=== PATIENT | female | born 1970 | race Caucasian/White ===

== ENCOUNTER 2016-12-15 20:25 | Inpatient (IN) | payer OTHER ==
[~2016-12-15] VITALS: Ht 172.7 cm; Wt 120.3 kg
[~2016-12-15 20:25] MED LIST: ALOG1TAB4 PO; ATOR20TA PO; BENA40TA2 PO; CETI10TA22 PO; CYCL10TA2 PO; DICL100G7 TP; GABA-586 PO; IBUP-1060 PO; KETO10TA PO; LEVO50TA5 PO; METF500T9 PO; METO200T3 PO; SUMA50TA3 PO; VENL150C PO; VENTOLIN HFA18 GM INH; [UNRECOGNIZED DRUG - CODE] SQ
[2016-12-15] MEDS ORDERED: IPRATRPIUM/ALBUTEROL 0.5/2.5MG 3 ML NEBU. ONE (20:33)
[2016-12-15] MEDS ORDERED: PREDNISONE 20 MG TABLET PO ONE (20:45)
[2016-12-15] MEDS ORDERED: GUAIFENESIN/CODEINE 100mg/10mg 5 ML LIQUID. PO ONE (20:45)
[2016-12-15] MEDS ORDERED: IPRATRPIUM/ALBUTEROL 0.5/2.5MG 3 ML NEBU. NEB ONE (20:45)
[2016-12-15] MEDS ORDERED: ALBUTEROL SULFATE 2.5 MG/3 ML NEBU. NEB ONE (21:15)
[2016-12-15] MEDS ORDERED: GUAI120L35 PO (22:27)
[2016-12-15] MEDS ORDERED: PRED20TA PO (22:27)
[2016-12-15] MEDS ORDERED: LEVO500T38 PO (22:27)
[2016-12-15] MEDS ORDERED: VENTOLIN HFA18 GM INH (22:27)
--- NOTE | 2016-12-15 22:28 | PHYS DOC ---
Past Medical History Past Medical History: Bronchitis, Diabetes-Type II, GERD, Hypertension, Hypothyroid Additional Past Medical Histor: neuropathy, obesity Past Surgical History: Cholecystectomy, Hysterectomy Additional Past Surgical Histo: open heart 1980, tonsils , Alcohol Use: None Drug Use: None Adult General Chief Complaint Chief Complaint: SHORTNESS OF BREATH HPI HPI 46-year-old nonsmoker presents with intractable cough and congestion. She states she had a bout of bronchitis back in September she was treated and did get better for a period of time but this is started back up again. She feels short of breath when she exerts herself she begins to cough which becomes nearly impossible to control. She denies any fever chills or sweats. She's not had any hemoptysis. [] Review of Systems Review of Systems Constitutional: Denies fever or chills [] Eyes: Denies change in visual acuity, redness, or eye pain [] HENT: Denies nasal congestion or sore throat [] Respiratory: Per history of present illness [] Cardiovascular: No additional information not addressed in HPI [] GI: Denies abdominal pain, nausea, vomiting, bloody stools or diarrhea [] : Denies dysuria or hematuria [] Musculoskeletal: Denies back pain or joint pain [] Integument: Denies rash or skin lesions [] Neurologic: Denies headache, focal weakness or sensory changes [] Endocrine: Denies polyuria or polydipsia [] Current Medications Current Medications Current Medications Medications (Trade) Dose Ordered Sig/Yasmine Start Time Stop Time Status Last Admin Dose Admin Albuterol Sulfate (Ventolin Neb Soln) 5 mg 1X ONCE 12/15/16 21:15 12/15/16 21:16 DC 12/15/16 21:57 5 MG Albuterol/ Ipratropium (Duoneb) 6 ml 1X ONCE 12/15/16 20:45 12/15/16 20:46 DC 12/15/16 20:40 6 ML Guaifenesin/ Codeine Phosphate (Robitussin Ac) 10 ml 1X ONCE 12/15/16 20:45 12/15/16 20:46 DC 12/15/16 20:42 10 ML Prednisone (Prednisone) 60 mg 1X ONCE 12/15/16 20:45 12/15/16 20:46 DC 12/15/16 20:45 60 MG Allergies Allergies Allergies Coded Allergies Type Severity Reaction Last Updated Verified acetaminophen Allergy Intermediate vomiting 12/28/13 Yes aspirin Allergy Intermediate rash 12/28/13 Yes morphine Allergy Intermediate 05/19/16 Yes oxycodone HCl Allergy Intermediate vomiting 12/28/13 Yes latex Allergy Mild swelling 12/28/13 Yes Physical Exam Physical Exam Constitutional: Well developed, well nourished, no acute distress, non-toxic appearance. [] HENT: Normocephalic, atraumatic, bilateral external ears normal, oropharynx moist, no oral exudates, nose normal. [] Eyes: PERRLA, EOMI, conjunctiva normal, no discharge. [] Neck: Normal range of motion, no tenderness, supple, no stridor. [] Cardiovascular:Heart rate regular rhythm, no murmur [] Lungs & Thorax: Scattered wheezes throughout both lungs [] Abdomen: Bowel sounds normal, soft, no tenderness, no masses, no pulsatile masses. [] Skin: Warm, dry, no erythema, no rash. [] Back: No tenderness, no CVA tenderness. [] Extremities: No tenderness, no cyanosis, no clubbing, ROM intact, no edema. [] Neurologic: Alert and oriented X 3, normal motor function, normal sensory function, no focal deficits noted. [] Psychologic: Anxious. [] Current Patient Data Vital Signs Vital Signs Date Time Temp Pulse Resp B/P Pulse Ox O2 Delivery O2 Flow Rate FiO2 12/15/16 21:59 92 Nasal Cannula 3.0 12/15/16 20:32 98.4 150 30 148/84 98.4 EKG EKG [] Radiology/Procedures Radiology/Procedures [] Impressions: Chest x-ray: Small left lower lobe infiltrate Course & Med Decision Making Course & Med Decision Making Pertinent Labs and Imaging studies reviewed. (See chart for details) [ED course: Evaluation reveals a case of bronchitis but she may have a small pneumonia in the left lower lobe. She will be prescribed Levaquin, prednisone, albuterol as well as guaifenesin with codeine.] Dragon Disclaimer Dragon Disclaimer This electronic medical record was generated, in whole or in part, using a voice recognition dictation system. Departure Departure Impression: Primary Impression: Acute bronchitis Disposition: 01 HOME, SELF-CARE Condition: IMPROVED Referrals: MOHAMUD HARDY (PCP) Patient Instructions: Acute Bronchitis, Pneumonia, Adult Additional Instructions: Thank you for allowing us to participate in your care today. Followup with your primary care physician in 3 days if your symptoms do not improve. Return to the emergency department you have any new or concerning findings. This should be evaluated by the primary care physician and any necessary consulting services for continued management within a few days after discharge. Return to emergency room if you have any new or concerning symptoms including but not limited to fever, chills, nausea, vomiting, intractable pain, any new rashes, chest pain, shortness of air, uncontrolled bleeding, difficulty breathing, and/or vision loss. You may have been prescribed medication that can change in your level of thinking and ability to operate machinery. These medications include hydrocodone and Ativan. Also, Benadryl has been known to do this as well. Be sure to check with your pharmacist and ask if the medications you've prescribed can affect your level of consciousness. I recommend not operating heavy machinery or driving while on medication such as these. Scripts Prednisone 20 Mg Tablet2 Tab PO DAILY PRN COUGH #14 TAB Prov:ARNULFO DAVIS DO 12/15/16 Guaifenesin/Codeine Phosphate (Codeine-Guaifen 10-100 mg/5 ml)120 Ml [id number] Ml PO Q8HRS COUGH #120 LIQUID Prov:ARNULFO DAVIS DO 12/15/16 Albuterol Sulfate (Ventolin Hfa Inhaler)18 Gm Hfa.aer.ad2 Puff INH Q4HRS FOR ASTHMA #1 INHALER Ref 2 Prov:ARNULFO DAVIS DO 12/15/16 Levofloxacin (Levaquin)500 Mg Tablet1 Tab PO DAILY urinary tract infection #10 TAB Prov:ARNULFO DAVIS DO 12/15/16 Problem Qualifiers Primary Impression: Acute bronchitis Bronchitis organism: unspecified organism Qualified Code: J20.9 - Acute bronchitis, unspecified ARNULFO DAVIS DO Dec 15, 2016 22:28
[2016-12-15] MEDS ORDERED: IV NORMAL SALINE 1000ML BAG 1,000 ML IV ONE (23:00)
[2016-12-15] MEDS ORDERED: ONDANSETRON PF 4 MG/2 ML VIAL. IV PRN (23:00)
[2016-12-16] VITALS (7 sets, daily range): BP systolic 106–148; BP diastolic 66–84
[2016-12-16] MEDS: IV NORMAL SALINE 1000ML BAG 1,000 ML IV SCH ×4 (00:58→20:56)
--- NOTE | 2016-12-16 07:12 | EKG ---
[facility] [address] [place] [address] Test Date: 2016-12-15 Test Time: 20:35:45 Pat Name: MAYRA MACE Department: Room: 8 Gender: F Lead Application Architect: : 1970 Requested By: CHENG SIMPSON Order Number: [id number] Reading MD: Gayle Armendariz Measurements Intervals [place] Rate: 121 P: 133 MO: 168 QRS: 56 QRSD: 72 T: 31 QT: 310 QTc: 443 Interpretive Statements SINUS TACHYCARDIA OTHERWISE NORMAL ECG RI6.01 No previous ECG available for comparison Electronically Signed On 12-18-2016 0:41:09 BRAKE RIDER by Gayle Armendariz
--- NOTE | 2016-12-16 08:19 | RAD ---
Portable chest, 12/15/2016: History: Cough Comparison is made to a study from 05/03/2014. The heart size and pulmonary vascularity are normal. There is minimal linear atelectasis or scarring in the left base. The upper lung reyes are clear. There is no evidence of pleural fluid. IMPRESSION: Minimal left basilar linear atelectasis or scarring.
[2016-12-16] MEDS: IPRATRPIUM/ALBUTEROL 0.5/2.5MG 3 ML NEBU. NEB SCH ×4 (08:39→19:54)
[2016-12-16] MEDS: methylPREDNISolone SOD SUCC PF 40 MG/ML VIAL. IV SCH ×2 (09:01→20:57)
[2016-12-16] MEDS ORDERED: INSULIN ASPART 300 UNITS/3 ML INSULN.PEN SQ ONE ×2 (09:30→12:00)
[2016-12-16] MEDS ORDERED: SUMATRIPTAN SUCCINATE 4 MG PO PRN (11:00)
[2016-12-16] MEDS ORDERED: IBUPROFEN 400 MG TABLET. PO PRN (11:15)
[2016-12-16] MEDS ORDERED: DEXTROSE 50% 25 GM / 50ML DISP.SYRIN. IV PRN (11:15)
[2016-12-16] MEDS: DICLOFENAC SODIUM 1% TOPICAL GEL 100GM TUBE. TP SCH ×2 (12:00→20:57)
[2016-12-16] MEDS: INSULIN ASPART 300 UNITS/3 ML INSULN.PEN SQ SCH ×2 (12:00→17:22)
[2016-12-16] MEDS ORDERED: NON FORMULARY ITEM (Albuterol Sulfate (Ventolin Hfa Inhaler) 2 PUFF) INH SCH (12:00)
[2016-12-16] MEDS: CETIRIZINE HCL 10 MG TABLET PO SCH (12:01)
[2016-12-16] MEDS: PANTOPRAZOLE 40 MG TABLET. PO SCH (12:01)
[2016-12-16] MEDS: VENLAFAXINE 50 MG TABLET. PO SCH ×2 (12:01→20:57)
[2016-12-16] MEDS: GABAPENTIN 300 MG CAPSULE. PO SCH ×2 (12:01→20:57)
[2016-12-16] MEDS: METFORMIN XR 500 MG TAB.ER.24H PO SCH ×2 (12:02→20:57)
[2016-12-16] MEDS: LEVOTHYROXINE 50 MCG TABLET PO SCH (12:02)
[2016-12-16] MEDS: LISINOPRIL 40 MG TABLET. PO SCH (12:03)
[2016-12-16] MEDS: METOPROLOL SUCC 24HR ER 100 MG TAB.ER.24H. PO SCH (12:03)
[2016-12-16 12:04] LABS: BASO % 0 % (0-3); EOS % 0 % (0-3); LYMPH # 1.5 x10^3/uL (1.0-4.8); LYMPH % 13 % (24-48); MEAN CORPUSCULAR HEMOGLOBIN 27 pg (25-35); MEAN CORPUSCULAR HGB CONC 31 g/dL (31-37); MEAN CORPUSCULAR VOLUME 87 fL (79-100); MONO % 3 % (0-9); NEUT % 83 % (31-73); PLATELET COUNT 372 x10^3/uL (140-400); RED BLOOD COUNT 4.04 x10^6/uL (3.50-5.40); RED CELL DISTRIBUTION WIDTH 17.5 % (11.5-14.5); WHITE BLOOD COUNT 11.1 x10^3/uL (4.0-11.0)
[2016-12-16] MEDS: ENOXAPARIN 40 MG/0.4 ML DISP.SYRIN. SQ SCH (12:04)
[2016-12-16 12:17] LABS: ALBUMIN 3.3 g/dL (3.4-5.0); ALBUMIN/GLOBULIN RATIO 0.7 (1.0-1.7); CALCIUM 9.1 mg/dL (8.5-10.1); CREATININE 0.9 mg/dL (0.6-1.0); POTASSIUM 4.3 mmol/L (3.5-5.1); TOTAL BILIRUBIN 0.2 mg/dL (0.2-1.0); TOTAL PROTEIN 8.1 g/dL (6.4-8.2)
--- NOTE | 2016-12-16 12:22 | HP ---
ADMIT DATE: 12/16/2016 CHIEF COMPLAINT: Shortness of breath. HISTORY OF PRESENT ILLNESS: The patient is a 46-year-old woman with morbid obesity, hypertension, diabetes mellitus, and fibromyalgia who presented to the Emergency Room with recurrent shortness of breath. She relates that this started actually last September with the weather getting cold. She started having more cough and shortness of breath with minor activity, which is quite atypical for her. She denies any fevers or chills. Denies any hemoptysis, any nausea, vomiting or other symptoms. She relates that she had been diagnosed with asthma as a child, but has not had any recent issues. Never smoker. Since September, she actually had required 2 rounds of antibiotics and steroid tapers. Typically within 2 or 3 weeks after completion, symptoms recur. PAST MEDICAL AND SURGICAL HISTORY: Diabetes mellitus, hypertension, hypothyroidism, GERD, diabetic neuropathy, obesity, status post cholecystectomy, status post hysterectomy. FAMILY HISTORY: Positive for DVT, PE in father and half sibling who actually during a of PE. SOCIAL HISTORY: , living with her . No toxic habits. ALLERGIES: TYLENOL, ASPIRIN, LATEX, MORPHINE and OXYCODONE are listed. MEDICATIONS: Home medications reconciled with MAR. REVIEW OF SYSTEMS: Positive as per HPI. Rest of organ system review was essentially negative. PHYSICAL EXAMINATION: VITAL SIGNS: From today show a blood pressure of 134/72, heart rate at 114, respiratory rate at 18. She is afebrile. GENERAL: This is a 46-year-old morbidly obese woman, alert and oriented, in no acute distress. HEENT: Shows no scleral icterus. Oral mucosa is pink and moist. NECK: Supple, without any lymphadenopathy. LUNGS: Revealing expiratory wheezes throughout. No rales. HEART: Tachycardic. ABDOMEN: Obese, positive bowel sounds. EXTREMITIES: Show no edema. SKIN: Warm, soft and dry without any rash. LABORATORY DATA: CBC, Chem-7 pending. Glucose 283 and 293. RADIOGRAPHIC FINDINGS: Chest x-ray with minimal left basilar linear atelectasis or scarring. ASSESSMENT AND PLAN: The patient is a 46-year-old woman with recurrent bouts of shortness of breath/bronchitis. I suspect there may be underlying asthma in her. I will obtain pulmonary consult. In the meantime, she has been started on steroids, which clearly is helping her. We will continue regimen for the time being. Suspect she may need an inhaled steroid for maintenance down the road. Without clear bacterial infection symptoms, we will hold off on antibiotics for now. Continue O2 as needed. For diabetes, she is on multiple meds which we unfortunately do not have available here. With steroids on board as well, blood sugars are poorly controlled. We will institute insulin for the time being. Continue metformin. For high blood pressure, the patient is on a regimen at home that seems to be controlling blood pressure well. Will continue. Will also continue other home medications including for depression and fibromyalgia. Prophylaxis will be instituted with PPI considering her steroid regimen as well as Lovenox. LILI HONG MD DR: ALLY/nts JOB#: [id number] / [id number] MOHAMUD De Dios MTDD
[2016-12-16 12:39] LABS: OBC FLU VALID
[2016-12-16] MEDS ORDERED: ALBUTEROL SULFATE 2.5 MG/3 ML NEBU. NEB PRN (14:00)
[2016-12-16] MEDS: GUAIFENESIN/CODEINE 100mg/10mg 5 ML LIQUID. PO SCH ×2 (14:33→20:58)
[2016-12-16] MEDS: BUDESONIDE 0.5 MG/2 ML NEBU NEB SCH (19:53)
[2016-12-16] MEDS ORDERED: ATORVASTATIN CALCIUM 20 MG TABLET PO SCH (21:00)
[2016-12-17 03:00] VITALS: BP 147/82
[2016-12-17] MEDS: GUAIFENESIN/CODEINE 100mg/10mg 5 ML LIQUID. PO SCH ×2 (05:07→12:53)
[2016-12-17] MEDS: LEVOTHYROXINE 50 MCG TABLET PO SCH (05:07)
[2016-12-17 07:00] VITALS: BP 152/89
--- NOTE | 2016-12-17 07:11 | CONS ---
DATE OF CONSULTATION: ATTENDING PHYSICIAN: Michael Ortega D.O. REASON FOR CONSULTATION: Cough, dyspnea and wheezing. HISTORY OF PRESENT ILLNESS: The patient is a 46-year-old obese patient who has no history of tobacco use. She did have a history of asthma as a child, which she outgrew it. She presented to the hospital with complaint of persistent cough and chest congestion. She said she had a bout of bronchitis back in September, which did took a while to get better and then she started to have same symptoms with persistent coughing. She was having wheezing as well. The patient was seen in the Emergency Room. A chest x-ray was obtained. This shows minimal atelectasis versus scarring in the left lower lobe. She is feeling better. She wants to go home. Currently, she was placed on nebulizer treatments along with IV Solu-Medrol. She also has been tested for sleep apnea. She was told that she probably has sleep apnea and she is scheduled for CPAP titration study as an outpatient. PAST MEDICAL HISTORY: History of bronchitis, history of asthma as a child, type 2 diabetes, GERD, hypertension, hypothyroidism, neuropathy, obesity and suspected OLY. PAST SURGICAL HISTORY: Cholecystectomy, hysterectomy, open heart in 1979 and tonsillectomy. ALLERGIES: Multiple, which were all reviewed as listed in the MRAD. MEDICATIONS: Reviewed as listed in the MRAD. SOCIAL HISTORY: Nonsmoker. FAMILY HISTORY: Noncontributory to lungs. PHYSICAL EXAMINATION: VITAL SIGNS: Stable, afebrile, pulse ox 94% on 3 liters. NECK: Supple. LUNGS: With faint expiratory wheezes. CARDIOVASCULAR: Regular rate and rhythm. ABDOMEN: Soft, obese. EXTREMITIES: With no pitting edema. LABORATORY DATA: Reviewed. Only chemistries were available with a glucose of 293. IMPRESSION: 1. Persistent cough with bronchospasm in the patient who has no significant history of tobacco use and minimal atelectasis seen in the left lower lobe. I suspect she most likely has viral bronchitis triggering adult-onset asthma. 2. No significant history of tobacco use. 3. Sleep apnea diagnosed recently and is scheduled for an outpatient CPAP titration study. 4. Underlying morbid obesity. 5. Hypoxic respiratory failure secondary to above, requiring 3 liters of oxygen. RECOMMENDATIONS: 1. Continue with present albuterol nebulizer. 2. She would benefit from adding steroid inhaler. I have given a prescription of Flovent as an outpatient and in house she will use Pulmicort. 3. Continued IV steroids. 4. Rule out influenza. Nasal swab will be done. 5. Add empiric antibiotic. 6. Could be discharged home in the next 24 hours. HUBER LEWIS MD DR: ZOLTAN/ne JOB#: [id number] / [id number] JONO
[2016-12-17] MEDS: IPRATRPIUM/ALBUTEROL 0.5/2.5MG 3 ML NEBU. NEB SCH (07:35)
[2016-12-17] MEDS: BUDESONIDE 0.5 MG/2 ML NEBU NEB SCH (07:35)
[2016-12-17] MEDS: VENLAFAXINE 50 MG TABLET. PO SCH ×2 (08:26→12:52)
[2016-12-17] MEDS: GABAPENTIN 300 MG CAPSULE. PO SCH (08:26)
[2016-12-17] MEDS: LISINOPRIL 40 MG TABLET. PO SCH (08:27)
[2016-12-17] MEDS: PANTOPRAZOLE 40 MG TABLET. PO SCH (08:28)
[2016-12-17] MEDS: methylPREDNISolone SOD SUCC PF 40 MG/ML VIAL. IV SCH (08:28)
[2016-12-17] MEDS: METFORMIN XR 500 MG TAB.ER.24H PO SCH (08:28)
[2016-12-17] MEDS: METOPROLOL SUCC 24HR ER 100 MG TAB.ER.24H. PO SCH (08:29)
[2016-12-17] MEDS: CETIRIZINE HCL 10 MG TABLET PO SCH (08:30)
[2016-12-17] MEDS: INSULIN ASPART 300 UNITS/3 ML INSULN.PEN SQ SCH ×2 (08:37→13:00)
--- NOTE | 2016-12-17 10:35 | PDOC ---
PULMONARY PROGRESS NOTES Subjective less cough wants to go home Vitals Vital Signs Date Time Temp Pulse Resp B/P Pulse Ox O2 Delivery O2 Flow Rate FiO2 12/17/16 08:29 88 152/89 12/17/16 07:36 95 Room Air 12/17/16 07:00 97.7 22 97.7 12/16/16 19:57 3.0 General: Alert, No acute distress Lungs: Clear Cardiovascular: S1 Abdomen: Soft Neuro Exam: Alert Extremities: No Edema Skin: Warm Labs Laboratory Tests Test 12/15/16 23:48 12/16/16 08:05 12/16/16 11:15 12/16/16 11:43 Glucose (Fingerstick) 283mg/dL (70-99) 293mg/dL (70-99) 364mg/dL (70-99) White Blood Count 11.1x10^3/uL (4.0-11.0) Red Blood Count 4.04x10^6/uL (3.50-5.40) Hemoglobin 11.0g/dL (12.0-15.5) Hematocrit 35.0% (36.0-47.0) Mean Corpuscular Volume 87fL (79-100) Mean Corpuscular Hemoglobin 27pg (25-35) Mean Corpuscular Hemoglobin Concent 31g/dL (31-37) Red Cell Distribution Width 17.5% (11.5-14.5) Platelet Count 372x10^3/uL (140-400) Neutrophils (%) (Auto) 83% (31-73) Lymphocytes (%) (Auto) 13% (24-48) Monocytes (%) (Auto) 3% (0-9) Eosinophils (%) (Auto) 0% (0-3) Basophils (%) (Auto) 0% (0-3) Neutrophils # (Auto) 9.2x10^3uL (1.8-7.7) Lymphocytes # (Auto) 1.5x10^3/uL (1.0-4.8) Monocytes # (Auto) 0.3x10^3/uL (0.0-1.1) Eosinophils # (Auto) 0.0x10^3/uL (0.0-0.7) Basophils # (Auto) 0.0x10^3/uL (0.0-0.2) Sodium Level 139mmol/L (136-145) Potassium Level 4.3mmol/L (3.5-5.1) Chloride Level 102mmol/L (98-107) Carbon Dioxide Level 28mmol/L (21-32) Anion Gap 9 (6-14) Blood Urea Nitrogen 8mg/dL (7-20) Creatinine 0.9mg/dL (0.6-1.0) Estimated GFR (Cockcroft-Gault) 68.0 BUN/Creatinine Ratio 9 (6-20) Glucose Level 373mg/dL (70-99) Calcium Level 9.1mg/dL (8.5-10.1) Total Bilirubin 0.2mg/dL (0.2-1.0) Aspartate Amino Transf (AST/SGOT) 23U/L (15-37) Alanine Aminotransferase (ALT/SGPT) 29U/L (14-59) Alkaline Phosphatase 87U/L (46-116) Total Protein 8.1g/dL (6.4-8.2) Albumin 3.3g/dL (3.4-5.0) Albumin/Globulin Ratio 0.7 (1.0-1.7) Test 12/16/16 12:00 12/16/16 16:57 12/16/16 20:45 12/17/16 07:40 Influenza Type A Antigen Negative (NEGATIVE) Influenza Type B Antigen Negative (NEGATIVE) Glucose (Fingerstick) 285mg/dL (70-99) 236mg/dL (70-99) 300mg/dL (70-99) Laboratory Tests Test 12/16/16 11:15 12/16/16 11:43 12/16/16 12:00 12/16/16 16:57 Glucose (Fingerstick) 364mg/dL (70-99) 285mg/dL (70-99) White Blood Count 11.1x10^3/uL (4.0-11.0) Red Blood Count 4.04x10^6/uL (3.50-5.40) Hemoglobin 11.0g/dL (12.0-15.5) Hematocrit 35.0% (36.0-47.0) Mean Corpuscular Volume 87fL (79-100) Mean Corpuscular Hemoglobin 27pg (25-35) Mean Corpuscular Hemoglobin Concent 31g/dL (31-37) Red Cell Distribution Width 17.5% (11.5-14.5) Platelet Count 372x10^3/uL (140-400) Neutrophils (%) (Auto) 83% (31-73) Lymphocytes (%) (Auto) 13% (24-48) Monocytes (%) (Auto) 3% (0-9) Eosinophils (%) (Auto) 0% (0-3) Basophils (%) (Auto) 0% (0-3) Neutrophils # (Auto) 9.2x10^3uL (1.8-7.7) Lymphocytes # (Auto) 1.5x10^3/uL (1.0-4.8) Monocytes # (Auto) 0.3x10^3/uL (0.0-1.1) Eosinophils # (Auto) 0.0x10^3/uL (0.0-0.7) Basophils # (Auto) 0.0x10^3/uL (0.0-0.2) Sodium Level 139mmol/L (136-145) Potassium Level 4.3mmol/L (3.5-5.1) Chloride Level 102mmol/L (98-107) Carbon Dioxide Level 28mmol/L (21-32) Anion Gap 9 (6-14) Blood Urea Nitrogen 8mg/dL (7-20) Creatinine 0.9mg/dL (0.6-1.0) Estimated GFR (Cockcroft-Gault) 68.0 BUN/Creatinine Ratio 9 (6-20) Glucose Level 373mg/dL (70-99) Calcium Level 9.1mg/dL (8.5-10.1) Total Bilirubin 0.2mg/dL (0.2-1.0) Aspartate Amino Transf (AST/SGOT) 23U/L (15-37) Alanine Aminotransferase (ALT/SGPT) 29U/L (14-59) Alkaline Phosphatase 87U/L (46-116) Total Protein 8.1g/dL (6.4-8.2) Albumin 3.3g/dL (3.4-5.0) Albumin/Globulin Ratio 0.7 (1.0-1.7) Influenza Type A Antigen Negative (NEGATIVE) Influenza Type B Antigen Negative (NEGATIVE) Test 12/16/16 20:45 12/17/16 07:40 Glucose (Fingerstick) 236mg/dL (70-99) 300mg/dL (70-99) Medications Active Scripts Medications Dose Route/Sig Days Date Category Prednisone 20 Mg Tablet 2 Tab PO DAILY PRN 12/15/16 Rx Codeine-Guaifen 10-100 mg/5 ml (Guaifenesin/Codeine Phosphate) 120 Ml Liquid 10 Ml PO Q8HRS 12/15/16 Rx Ventolin Hfa Inhaler (Albuterol Sulfate) 18 Gm Hfa.aer.ad 2 Puff INH Q4HRS 12/15/16 Rx Levaquin (Levofloxacin) 500 Mg Tablet 1 Tab PO DAILY 12/15/16 Rx Gabapentin 300 Mg Capsule 300 Mg PO BID 03/20/16 Reported Ibuprofen 800 Mg Tablet 800 Mg PO TID 03/20/16 Reported Metformin Hcl Er (Metformin Hcl) 500 Mg Tab.er.24h 2 Tab PO DAILY 03/20/16 Reported Cyclobenzaprine Hcl 10 Mg Tablet 1 Tab PO QHS 03/20/16 Reported Lipitor (Atorvastatin Calcium) 20 Mg Tablet 20 Mg PO HS 03/20/16 Reported Levothyroxine Sodium 50 Mcg Tablet 1 Tab PO DAILY 03/20/16 Reported Benazepril Hcl 40 Mg Tablet 1 Tab PO DAILY 03/20/16 Reported Oseni 25-15 Mg Tablet (Alogliptin Walter/Pioglitzone) 1 Each Tablet 1 Each PO 03/20/16 Reported Sumavel Dosepro (Sumatriptan Succinate) 4 Mg/0.5 Ml Ndl.fr.inj 4 Mg SQ 03/20/16 Reported Voltaren (Diclofenac Sodium) 100 Gm Gel..gram. 1 Gm TP TID 03/20/16 Reported Metoprolol Succinate ( Xl ) (Metoprolol Succinate) 200 Mg Tab.er.24h 1 Tab PO DAILY 03/20/16 Reported Ketorolac Tromethamine 10 Mg Tablet 10 Mg PO DAILY 03/20/16 Reported Ventolin Hfa Inhaler (Albuterol Sulfate) 18 Gm Hfa.aer.ad 2 Puff INH QID 03/20/16 Reported Zyrtec (Cetirizine Hcl) 10 Mg Tablet 1 Tab PO DAILY 03/20/16 Reported Imitrex (Sumatriptan Succinate) 50 Mg Tablet 4 Mg PO ONCE PRN 03/20/16 Reported Effexor Xr (Venlafaxine Hcl) 150 Mg Cap.er.24h 1 Cap PO DAILY 03/20/16 Reported Impression . 1. Persistent cough with bronchospasm in the patient who has no significant history of tobacco use and minimal atelectasis seen in the left lower lobe. I suspect she most likely has viral bronchitis triggering adult-onset asthma. 2. No significant history of tobacco use. 3. Sleep apnea diagnosed recently and is scheduled for an outpatient CPAP titration study. 4. Underlying morbid obesity. 5. Hypoxic respiratory failure secondary to above, requiring 3 liters of oxygen. Plan . 1. Continue with present albuterol nebulizer. 2. She would benefit from adding steroid inhaler. I have given a prescription of Flovent as an outpatient and in house she will use Pulmicort. 3. Continued IV steroids. start taper 4. Neg influenza. 5. empiric antibiotic. 6. Could be discharged home today HUBER LEWIS MD Dec 17, 2016 10:35
[2016-12-17 11:05] VITALS: BP 137/89
--- NOTE | 2016-12-17 11:15 | PDOC ---
PROGRESS NOTES Chief Complaint Chief Complaint SOB ASSESSMENT AND PLAN: 1. Bronchitis: clinically much improved. appreciate Dr Rudd's input. steroid taper . added inhaled steroids 2. DM: poorly controlled, not unexpected with steroids. taper off, cover with iss 3. HTN: : well controlled on home regimen 4. Fibromyalgia: cont home meds 5. Depression: stable mood. cont home med 6. Prophylaxis: PPI, lovenox 7. Dispo: home Vitals Vitals Vital Signs Date Time Temp Pulse Resp B/P Pulse Ox O2 Delivery O2 Flow Rate FiO2 12/17/16 11:05 97.7 89 20 137/89 94 Room Air 97.7 12/16/16 19:57 3.0 Physical Exam Lungs: Clear Labs LABS Laboratory Tests Test 12/16/16 11:15 12/16/16 11:43 12/16/16 12:00 12/16/16 16:57 Glucose (Fingerstick) 364mg/dL (70-99) 285mg/dL (70-99) White Blood Count 11.1x10^3/uL (4.0-11.0) Red Blood Count 4.04x10^6/uL (3.50-5.40) Hemoglobin 11.0g/dL (12.0-15.5) Hematocrit 35.0% (36.0-47.0) Mean Corpuscular Volume 87fL (79-100) Mean Corpuscular Hemoglobin 27pg (25-35) Mean Corpuscular Hemoglobin Concent 31g/dL (31-37) Red Cell Distribution Width 17.5% (11.5-14.5) Platelet Count 372x10^3/uL (140-400) Neutrophils (%) (Auto) 83% (31-73) Lymphocytes (%) (Auto) 13% (24-48) Monocytes (%) (Auto) 3% (0-9) Eosinophils (%) (Auto) 0% (0-3) Basophils (%) (Auto) 0% (0-3) Neutrophils # (Auto) 9.2x10^3uL (1.8-7.7) Lymphocytes # (Auto) 1.5x10^3/uL (1.0-4.8) Monocytes # (Auto) 0.3x10^3/uL (0.0-1.1) Eosinophils # (Auto) 0.0x10^3/uL (0.0-0.7) Basophils # (Auto) 0.0x10^3/uL (0.0-0.2) Sodium Level 139mmol/L (136-145) Potassium Level 4.3mmol/L (3.5-5.1) Chloride Level 102mmol/L (98-107) Carbon Dioxide Level 28mmol/L (21-32) Anion Gap 9 (6-14) Blood Urea Nitrogen 8mg/dL (7-20) Creatinine 0.9mg/dL (0.6-1.0) Estimated GFR (Cockcroft-Gault) 68.0 BUN/Creatinine Ratio 9 (6-20) Glucose Level 373mg/dL (70-99) Calcium Level 9.1mg/dL (8.5-10.1) Total Bilirubin 0.2mg/dL (0.2-1.0) Aspartate Amino Transf (AST/SGOT) 23U/L (15-37) Alanine Aminotransferase (ALT/SGPT) 29U/L (14-59) Alkaline Phosphatase 87U/L (46-116) Total Protein 8.1g/dL (6.4-8.2) Albumin 3.3g/dL (3.4-5.0) Albumin/Globulin Ratio 0.7 (1.0-1.7) Influenza Type A Antigen Negative (NEGATIVE) Influenza Type B Antigen Negative (NEGATIVE) Test 12/16/16 20:45 12/17/16 07:40 12/17/16 10:38 Glucose (Fingerstick) 236mg/dL (70-99) 300mg/dL (70-99) 276mg/dL (70-99) Review of Systems Review of Systems feels much better, eager to go home Comment Review of Relevant I have reviewed the following items marques (where applicable) has been applied. Labs Laboratory Tests Test 12/15/16 23:48 12/16/16 08:05 12/16/16 11:15 12/16/16 11:43 Glucose (Fingerstick) 283mg/dL (70-99) 293mg/dL (70-99) 364mg/dL (70-99) White Blood Count 11.1x10^3/uL (4.0-11.0) Red Blood Count 4.04x10^6/uL (3.50-5.40) Hemoglobin 11.0g/dL (12.0-15.5) Hematocrit 35.0% (36.0-47.0) Mean Corpuscular Volume 87fL (79-100) Mean Corpuscular Hemoglobin 27pg (25-35) Mean Corpuscular Hemoglobin Concent 31g/dL (31-37) Red Cell Distribution Width 17.5% (11.5-14.5) Platelet Count 372x10^3/uL (140-400) Neutrophils (%) (Auto) 83% (31-73) Lymphocytes (%) (Auto) 13% (24-48) Monocytes (%) (Auto) 3% (0-9) Eosinophils (%) (Auto) 0% (0-3) Basophils (%) (Auto) 0% (0-3) Neutrophils # (Auto) 9.2x10^3uL (1.8-7.7) Lymphocytes # (Auto) 1.5x10^3/uL (1.0-4.8) Monocytes # (Auto) 0.3x10^3/uL (0.0-1.1) Eosinophils # (Auto) 0.0x10^3/uL (0.0-0.7) Basophils # (Auto) 0.0x10^3/uL (0.0-0.2) Sodium Level 139mmol/L (136-145) Potassium Level 4.3mmol/L (3.5-5.1) Chloride Level 102mmol/L (98-107) Carbon Dioxide Level 28mmol/L (21-32) Anion Gap 9 (6-14) Blood Urea Nitrogen 8mg/dL (7-20) Creatinine 0.9mg/dL (0.6-1.0) Estimated GFR (Cockcroft-Gault) 68.0 BUN/Creatinine Ratio 9 (6-20) Glucose Level 373mg/dL (70-99) Calcium Level 9.1mg/dL (8.5-10.1) Total Bilirubin 0.2mg/dL (0.2-1.0) Aspartate Amino Transf (AST/SGOT) 23U/L (15-37) Alanine Aminotransferase (ALT/SGPT) 29U/L (14-59) Alkaline Phosphatase 87U/L (46-116) Total Protein 8.1g/dL (6.4-8.2) Albumin 3.3g/dL (3.4-5.0) Albumin/Globulin Ratio 0.7 (1.0-1.7) Test 12/16/16 12:00 12/16/16 16:57 12/16/16 20:45 12/17/16 07:40 Influenza Type A Antigen Negative (NEGATIVE) Influenza Type B Antigen Negative (NEGATIVE) Glucose (Fingerstick) 285mg/dL (70-99) 236mg/dL (70-99) 300mg/dL (70-99) Test 12/17/16 10:38 Glucose (Fingerstick) 276mg/dL (70-99) Laboratory Tests Test 12/16/16 11:15 12/16/16 11:43 12/16/16 12:00 12/16/16 16:57 Glucose (Fingerstick) 364mg/dL (70-99) 285mg/dL (70-99) White Blood Count 11.1x10^3/uL (4.0-11.0) Red Blood Count 4.04x10^6/uL (3.50-5.40) Hemoglobin 11.0g/dL (12.0-15.5) Hematocrit 35.0% (36.0-47.0) Mean Corpuscular Volume 87fL (79-100) Mean Corpuscular Hemoglobin 27pg (25-35) Mean Corpuscular Hemoglobin Concent 31g/dL (31-37) Red Cell Distribution Width 17.5% (11.5-14.5) Platelet Count 372x10^3/uL (140-400) Neutrophils (%) (Auto) 83% (31-73) Lymphocytes (%) (Auto) 13% (24-48) Monocytes (%) (Auto) 3% (0-9) Eosinophils (%) (Auto) 0% (0-3) Basophils (%) (Auto) 0% (0-3) Neutrophils # (Auto) 9.2x10^3uL (1.8-7.7) Lymphocytes # (Auto) 1.5x10^3/uL (1.0-4.8) Monocytes # (Auto) 0.3x10^3/uL (0.0-1.1) Eosinophils # (Auto) 0.0x10^3/uL (0.0-0.7) Basophils # (Auto) 0.0x10^3/uL (0.0-0.2) Sodium Level 139mmol/L (136-145) Potassium Level 4.3mmol/L (3.5-5.1) Chloride Level 102mmol/L (98-107) Carbon Dioxide Level 28mmol/L (21-32) Anion Gap 9 (6-14) Blood Urea Nitrogen 8mg/dL (7-20) Creatinine 0.9mg/dL (0.6-1.0) Estimated GFR (Cockcroft-Gault) 68.0 BUN/Creatinine Ratio 9 (6-20) Glucose Level 373mg/dL (70-99) Calcium Level 9.1mg/dL (8.5-10.1) Total Bilirubin 0.2mg/dL (0.2-1.0) Aspartate Amino Transf (AST/SGOT) 23U/L (15-37) Alanine Aminotransferase (ALT/SGPT) 29U/L (14-59) Alkaline Phosphatase 87U/L (46-116) Total Protein 8.1g/dL (6.4-8.2) Albumin 3.3g/dL (3.4-5.0) Albumin/Globulin Ratio 0.7 (1.0-1.7) Influenza Type A Antigen Negative (NEGATIVE) Influenza Type B Antigen Negative (NEGATIVE) Test 12/16/16 20:45 12/17/16 07:40 12/17/16 10:38 Glucose (Fingerstick) 236mg/dL (70-99) 300mg/dL (70-99) 276mg/dL (70-99) Medications Current Medications Albuterol/ Ipratropium (Duoneb) 3 ml STK-MED ONCE .ROUTE ; Start 12/15/16 at 20: 33; Stop 12/15/16 at 20:34; Status DC Albuterol/ Ipratropium (Duoneb) 6 ml 1X ONCE NEB Last administered on 20:40; Start 12/15/16 at 20:45; Stop 12/15/16 at 20:46; Status DC Prednisone (Prednisone) 60 mg 1X ONCE PO Last administered on 12/15/16 20:45 ; Start 12/15/16 at 20:45; Stop 12/15/16 at 20:46; Status DC Guaifenesin/ Codeine Phosphate (Robitussin Ac) 10 ml 1X ONCE PO Last administered on 12/15/16 20:42; Start 12/15/16 at 20:45; Stop 12/15/16 at 20:46 ; Status DC Albuterol Sulfate (Ventolin Neb Soln) 5 mg 1X ONCE NEB Last administered on 21:57; Start 12/15/16 at 21:15; Stop 12/15/16 at 21:16; Status DC Ondansetron HCl 4 mg 4 mg PRN Q8HRS PRN IV NAUSEA/VOMITING; Start 12/15/16 at 23:00; Stop 12/16/16 at 22:59; Status DC Sodium Chloride (Iv Sodium Chloride 0.9% 1000ml Bag) 1,000 ml @ 150 mls/hr Q6H40M IV Last administered on 12/16/16 20:56; Start 12/15/16 at 23:00; Stop 12/16/16 at 22:59; Status DC Albuterol/ Ipratropium (Duoneb) 3 ml RTQID NEB Last administered on 12/17/16 07:35; Start 12/16/16 at 08:00; Stop 12/17/16 at 07:59; Status DC Methylprednisolone Sodium Succinate 40 mg 40 mg BID IV Last administered on 08:28; Start 12/16/16 at 09:00 Levofloxacin/ Dextrose 100 ml @ 100 mls/hr 1X ONCE IV Last administered on 00:12; Start 12/15/16 at 23:00; Stop 12/15/16 at 23:59; Status DC Sodium Chloride (Iv Sodium Chloride 0.9% 1000ml Bag) 1,000 ml @ 1,000 mls/hr 1X ONCE IV Last administered on 12/15/16 23:48; Start 12/15/16 at 23:00; Stop 12/15/16 at 23:59; Status DC Insulin Aspart (Novolog) 10 units 1X ONCE SQ Last administered on 12/16/16 09 :29; Start 12/16/16 at 09:30; Stop 12/16/16 at 09:31; Status DC Atorvastatin Calcium (Lipitor) 20 mg HS PO Last administered on 12/16/16 20:57 ; Start 12/16/16 at 21:00 Cetirizine HCl (Zyrtec) 10 mg DAILY PO Last administered on 12/16/16 12:01; Start 12/16/16 at 12:00 Diclofenac Sodium (Voltaren) 1 inna TID TP ; Start 12/16/16 at 12:00 Gabapentin (Neurontin) 300 mg BID PO Last administered on 12/17/16 08:26; Start 12/16/16 at 12:00 Guaifenesin/ Codeine Phosphate (Robitussin Ac) 10 ml Q8HRS PO Last administered on 12/17/16 05:07; Start 12/16/16 at 14:00 Ibuprofen (Motrin) 400 mg PRN Q6HRS PRN PO INFLAMMATION; Start 12/16/16 at 11: 15 Levothyroxine Sodium (Synthroid) 50 mcg DAILY06 PO Last administered on 05:07; Start 12/16/16 at 12:00 Metformin HCl (Glucophage Xr) 1,000 mg BID PO Last administered on 12/17/16 08 :28; Start 12/16/16 at 12:00 Non-Formulary Medication 2 puff Q4HRS INH FOR ASTHMA; Start 12/16/16 at 12:00; Status UNV Lisinopril (Prinivil) 40 mg DAILY PO Last administered on 12/17/16 08:27; Start 12/16/16 at 12:00 Metoprolol Succinate (Toprol Xl) 200 mg DAILY PO Last administered on 08:29; Start 12/16/16 at 12:00 Non-Formulary Medication 4 mg ONCE PRN PO MIGRAINE HEADACHE; Start 12/16/16 at 11:00; Status UNV Venlafaxine HCl (Effexor) 50 mg TID PO Last administered on 12/17/16 08:26; Start 12/16/16 at 12:00 Insulin Aspart (Novolog) 0-9 UNITS TIDWMEALS SQ Last administered on 12/17/16 08:37; Start 12/16/16 at 12:00 Dextrose 12.5 gm PRN Q15MIN PRN IV SEE COMMENTS; Start 12/16/16 at 11:15 Enoxaparin Sodium (Lovenox 40mg Syringe) 40 mg Q24H SQ Last administered on 12:04; Start 12/16/16 at 12:00 Pantoprazole Sodium (Protonix) 40 mg DAILYAC PO Last administered on 12/17/16 08:28; Start 12/16/16 at 12:00 Albuterol Sulfate (Ventolin Neb Soln) 2.5 mg PRN Q4HRS PRN NEB SHORTNESS OF BREATH; Start 12/16/16 at 14:00 Insulin Aspart 15 units 15 units 1X ONCE SQ Last administered on 12/16/16 12: 09; Start 12/16/16 at 12:00; Stop 12/16/16 at 12:01; Status DC Levofloxacin/ Dextrose (LEVAQUIN 500mg PREMIX) 100 ml @ 100 mls/hr Q24H IV Last administered on 12/16/16 12:19; Start 12/16/16 at 12:00 Budesonide (Pulmicort) 0.5 mg RTBID NEB Last administered on 12/17/16 07:35; Start 12/16/16 at 20:00 Active Scripts Active Prednisone 20 Mg Tablet 2 Tab PO DAILY PRN Codeine-Guaifen 10-100 mg/5 ml (Guaifenesin/Codeine Phosphate) 120 Ml Liquid 10 Ml PO Q8HRS Ventolin Hfa Inhaler (Albuterol Sulfate) 18 Gm Hfa.aer.ad 2 Puff INH Q4HRS Levaquin (Levofloxacin) 500 Mg Tablet 1 Tab PO DAILY Reported Gabapentin 300 Mg Capsule 300 Mg PO BID Ibuprofen 800 Mg Tablet 800 Mg PO TID Metformin Hcl Er (Metformin Hcl) 500 Mg Tab.er.24h 2 Tab PO DAILY Cyclobenzaprine Hcl 10 Mg Tablet 1 Tab PO QHS Lipitor (Atorvastatin Calcium) 20 Mg Tablet 20 Mg PO HS Levothyroxine Sodium 50 Mcg Tablet 1 Tab PO DAILY Benazepril Hcl 40 Mg Tablet 1 Tab PO DAILY Oseni 25-15 Mg Tablet (Alogliptin Walter/Pioglitzone) 1 Each Tablet 1 Each PO Sumavel Dosepro (Sumatriptan Succinate) 4 Mg/0.5 Ml Ndl.fr.inj 4 Mg SQ Voltaren (Diclofenac Sodium) 100 Gm Gel..gram. 1 Gm TP TID Metoprolol Succinate ( Xl ) (Metoprolol Succinate) 200 Mg Tab.er.24h 1 Tab PO DAILY Ketorolac Tromethamine 10 Mg Tablet 10 Mg PO DAILY Ventolin Hfa Inhaler (Albuterol Sulfate) 18 Gm Hfa.aer.ad 2 Puff INH QID Zyrtec (Cetirizine Hcl) 10 Mg Tablet 1 Tab PO DAILY Imitrex (Sumatriptan Succinate) 50 Mg Tablet 4 Mg PO ONCE PRN Effexor Xr (Venlafaxine Hcl) 150 Mg Cap.er.24h 1 Cap PO DAILY Vitals/I & O Vital Sign - Last 24 Hours 12/16/16 12/16/16 12/16/16 12/16/16 12:03 12:03 15:00 15:04 Temp 98.4 98.4 Pulse 114 114 91 Resp 17 B/P 134/72 134/72 130/66 Pulse Ox 97 O2 Delivery Room Air Room Air 12/16/16 12/16/16 12/16/16 12/16/16 19:00 19:57 19:57 20:00 Temp 97.9 97.9 Pulse 92 Resp 18 B/P 129/84 Pulse Ox 94 O2 Delivery Room Air Nasal Cannula Nasal Cannula Room Air O2 Flow Rate 3.0 3.0 12/16/16 12/17/16 12/17/16 12/17/16 23:00 03:00 07:00 07:36 Temp 98.4 97.9 97.7 98.4 97.9 97.7 Pulse 92 94 88 Resp 18 18 22 B/P 148/78 147/82 152/89 Pulse Ox 95 94 95 95 O2 Delivery Room Air Room Air Room Air Room Air 12/17/16 12/17/16 12/17/16 08:27 08:29 11:05 Temp 97.7 97.7 Pulse 89 88 89 Resp 20 B/P 152/89 152/89 137/89 Pulse Ox 94 O2 Delivery Room Air Intake and Output 12/16/16 12/16/16 12/17/16 15:00 23:00 07:00 Intake Total 460 ml 120 ml Balance 460 ml 120 ml LILI HONG MD Dec 17, 2016 11:15
[2016-12-17] MEDS: ENOXAPARIN 40 MG/0.4 ML DISP.SYRIN. SQ SCH (12:00)
--- NOTE | 2016-12-17 12:38 | DISCH ---
DISCHARGE INSTRUCTIONS Condition on Discharge Condition on Discharge: Stable Activity After Discharge Activity Instructions for Disc: No restrictions Diet after Discharge Diet after Discharge: Cardiac, Diabetic No Calorie Level Contacting the after DC Call your doctor for: If your condition worsens Follow-Up Follow up with: PCP in 1-2 weeks Follow Up With: Dr Rico Rudd in 3 months LILI HONG MD Dec 17, 2016 12:38
[2016-12-17] MEDS: DICLOFENAC SODIUM 1% TOPICAL GEL 100GM TUBE. TP SCH ×2 (12:52→13:02)
[2016-12-17] MEDS ORDERED: BUDE180A IH (13:02)
[2016-12-17] MEDS ORDERED: PRED-220 PO (16:25)
--- NOTE | 2016-12-19 01:20 | DS ---
DATE OF DISCHARGE: 12/17/2016 CHIEF COMPLAINT: Shortness of breath. HISTORY AND HOSPITAL COURSE: The patient is a 46-year-old morbidly obese woman with diabetes, hypertension, fibromyalgia, who presented with severe shortness of breath. She actually had been treated for bronchitis twice in the past 2 months by her PCP. Now with recurrent symptoms, she came to the Emergency Room. She was admitted, seen by pulmonology and started on steroids and nebulizers as well as supplemental O2. She actually improved significantly. She was deemed stable for discharge on the . Inhaled steroids were added to her home regimen. PHYSICAL EXAMINATION: Please refer to note from same day. DISCHARGE DATE: 12/17/2016 DISCHARGE CONDITION: Improved. DISCHARGE DISPOSITION: To home. DISCHARGE DIAGNOSES: 1. Bronchitis. 2. Adult onset asthma. DISCHARGE MEDICATIONS: Please refer to JAN. DISCHARGE INSTRUCTIONS: The patient will follow up with PCP ADRIENNE. LILI HONG MD DR: ALLY/nts JOB#: [id number] / [id number] MOHAMUD De Dios
== END 2016-12-17 17:00 | disposition home or self-care (01) | DRG 189 ==
LOC: ER 20:25 → 5 NORTH 22:50
PROVIDERS: ADMIT Internal Medicine; ATTEND Internal Medicine
DX: J96.01 Acute respiratory failure with hypoxia (principal); J20.9 Acute bronchitis, unspecified; J45.909 Unspecified asthma, uncomplicated; E03.9 Hypothyroidism, unspecified; F32.9 Major depressive disorder, single episode, unspecified; I10 Essential (primary) hypertension; K21.9 Gastro-esophageal reflux disease without esophagitis; M79.7 Fibromyalgia; E11.40 Type 2 diabetes mellitus with diabetic neuropathy, unspecified; E11.65 Type 2 diabetes mellitus with hyperglycemia; E66.01 Morbid (severe) obesity due to excess calories; Z88.1 Allergy status to other antibiotic agents; Z88.6 Allergy status to analgesic agent; Z91.040 Latex allergy status; Z88.8 Allergy status to other drugs, medicaments and biological substances; Z90.49 Acquired absence of other specified parts of digestive tract; Z90.710 Acquired absence of both cervix and uterus
CPT/HCPCS: 36415; 71010; 80053; 82947; 85027; 87804; 93005; 94250; 94640; J1650; J1815; J1956; J2920; J7030; J7512; J7620; 99285-25

== ENCOUNTER → 2017-02-20 | Outpatient (CLI) | payer OTHER ==
[~2017-02-20] MED LIST changes: +BUDE180A IH; +GUAI120L35 PO; +LEVO500T38 PO; +PRED-220 PO; +PRED20TA PO
--- NOTE | 2017-02-20 14:26 | KCIC ---
Examination: CT chest without contrast HISTORY History of chronic cough. COMPARISON None available. TECHNIQUE Axial CT images of the chest were performed without contrast. Coronal sagittal reformats were performed. Exposure: One or more of the following dose reduction technique were utilized for this examination: 1. Automated exposure control. 2.Adjustment of MA and /or KV according to patient size. 3. Use of iterative reconstruction technique. Findings : The visualized thyroid gland grossly appears unremarkable. Central airways are patent. The heart size grossly appears unremarkable. Mild pericardial calcification identified . No radiologically significant mediastinal lymphadenopathy is identified. 4 millimeter pulmonary nodule identified in the right mid lobe of the lung. Linear airspace opacities identified in the left lingular, bibasilar lungs likely atelectasis or infiltrate or scarring changes. No evidence of pleural effusion or pneumothorax identified. There is mild diffuse decrease attenuation noted throughout the liver likely hepatic steatosis .The visualized spleen, adrenals grossly appears unremarkable. Cholecystectomy clips identified. No evidence of lytic bony destructive lesion identified. Mild degenerative changes identified in the thoracic spine. IMPRESSION - 4 millimeter pulmonary nodule identified in the right middle lobe of the lung. Followup per Fleischner society guidelines. - Patchy linear bibasilar lung and left lingular atelectasis infiltrate or scarring changes identified. - Mild hepatic steatosis. Electronically signed by: Wagner Jimenez (Feb 20, 2017 14:24:52)
== END | disposition home or self-care (01) ==
LOC: KCIC CT 12:06
DX: R05 Cough (principal)
CPT/HCPCS: 71250

== ENCOUNTER → 2017-02-20 | Outpatient (CLI) | payer OTHER ==
--- NOTE | 2017-02-20 13:23 | KCIC ---
Examination: CT maxillofacial bones without contrast HISTORY History of chronic sinusitis. COMPARISON None available. TECHNIQUE Axial CT images of the maxillofacial bones without contrast. Coronal sagittal reformats were performed. Exposure: One or more of the following dose reduction technique were utilized for this examination: 1. Automated exposure control. 2.Adjustment of MA and /or KV according to patient size. 3. Use of iterative reconstruction technique. Findings: The visualized frontal sinuses, ethmoidal sinuses, right sphenoid sinus, bilateral maxillary sinuses are clear. There is mild mucosal thickening identified in the left sphenoid sinus . The mastoid air cells are clear. Bilateral orbital globes appear intact with retro-orbital fat is maintained. Mild rightward deviation of the nasal septum. IMPRESSION Mild mucosal thickening identified in the left sphenoid sinus likely sinus disease. No evidence of air-fluid levels identified to suggest acute sinusitis. Electronically signed by: Wagner Jimenez (Feb 20, 2017 13:21:23)
== END | disposition home or self-care (01) ==
LOC: KCIC CT 12:17
DX: J32.9 Chronic sinusitis, unspecified (principal)
CPT/HCPCS: 70486

== ENCOUNTER 2018-01-05 20:57 | Emergency (ER) | payer OTHER ==
[2018-01-06 05:48] LABS: NEGATIVE OBC STREP NEG; POSITIVE OBC STREP POS
== END 2018-01-05 21:43 | disposition home or self-care (01) ==
LOC: ER 20:57
DX: J02.0 Streptococcal pharyngitis (principal); E11.40 Type 2 diabetes mellitus with diabetic neuropathy, unspecified; I10 Essential (primary) hypertension; K21.9 Gastro-esophageal reflux disease without esophagitis; E03.9 Hypothyroidism, unspecified; Z88.5 Allergy status to narcotic agent; Z88.6 Allergy status to analgesic agent; Z91.040 Latex allergy status
CPT/HCPCS: 87880; 99283

== ENCOUNTER → 2019-03-03 | Outpatient (CLI) | payer OTHER ==
[2018-01-05 20:59] VITALS: BP 136/69
[~2019-03-03] MED LIST changes: +AMOX875T PO; -BENA40TA2 PO; +BENA40TA3 PO; +DICL100G18 TP; -DICL100G7 TP; -GABA-586 PO; +GABA300C18 PO; -LEVO500T38 PO; +LEVO500T59 PO; -METO200T3 PO; +METO200T46 PO
--- NOTE | 2019-03-03 14:37 | KCIC ---
MR of the left knee HISTORY: Left knee pain, chronic. Medial pain in recent weeks. TECHNIQUE: Routine multiplanar sequences are obtained. FINDINGS: No evidence of medial meniscal tear. No evidence of lateral meniscal tear. Anterior cruciate ligament and posterior cruciate ligament are intact. Medial collateral ligament intact. Iliotibial band unremarkable. Fibular collateral ligament, biceps femoris tendon and popliteus tendon are intact. Extensor mechanism intact. Small joint effusion. No significant Yadav's cyst. Severe cartilage loss at the lateral patella and at the lower lateral femoral trochlea with subchondral bone exposure and cysts. No aggressive bone destruction or acute fracture. IMPRESSION: 1. 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 2. No evidence of meniscal tear or other internal derangement. 3. Small joint effusion. Electronically signed by: Aden Castaneda MD (03/03/2019 2:34 PM) [id number]
== END | disposition home or self-care (01) ==
LOC: KCIC MRI 13:34
PROVIDERS: ATTEND Orthopaedic Surgery
DX: M17.12 Unilateral primary osteoarthritis, left knee (principal); M25.462 Effusion, left knee
CPT/HCPCS: 73721

== ENCOUNTER → 2020-01-06 | Outpatient (CLI) | payer OTHER ==
[2018-01-05 20:59] VITALS: BP 136/69
[~2020-01-06] MED LIST changes: -CETI10TA22 PO; +CETI10TA24 PO; +METF500T11 PO; -METF500T9 PO
--- NOTE | 2020-01-06 14:14 | KCIC ---
MR of the right hip and MR of the left hip HISTORY: Bilateral abductor tendinitis. Bilateral hip pain for one year. No known injury. TECHNIQUE: Routine multiplanar sequences are Right hip: Mild motion degradation. Also image degradation due to body habitus. No evidence of acute fracture, marrow edema or aggressive bone destruction. No evidence of femoral head osteonecrosis. Mild linear signal at the anterosuperior labrum labrum. This may be superficial to the labrum rather than within the labrum. No advanced DJD. No significant joint effusion. Gluteus minimus and medius tendon attachments are intact. Hamstring tendon intact. Iliopsoas tendon intact. Rectus femoris tendon attachment is intact. No abnormal soft tissue fluid collection is identified. Left hip: Mild motion degradation. There is also image degradation due to body habitus. No acute fracture, marrow edema or femoral head osteonecrosis. No aggressive bone destruction. No significant joint effusion. No advanced DJD. Mild linear signal along the anterosuperior labrum. This appears very similar to what was seen at the contralateral hip and may be along the surface of the labrum rather than within the labrum. Gluteus minimus and medius tendons are intact. Hamstring tendon attachment intact. Iliopsoas tendon intact. Rectus femoris tendon attachment intact. No evidence of acute soft tissue abnormality. Large gmvzd-[id number]-[id number] coronal survey sequence demonstrates no other acute findings within the [id number]. IMPRESSION: 1. Mild linear signal along the right and left anterosuperior labrum. Given that this may be superficial to the labrum and appears bilaterally symmetric, this most likely just represents some fluid within the joint recess, rather than right and left labral tear. 2. No other acute abnormality or internal derangement. Electronically signed by: Aden Castaneda MD (01/06/2020 2:11 PM) [id number]
--- NOTE | 2020-01-06 14:14 | KCIC ---
MR of the right hip and MR of the left hip HISTORY: Bilateral abductor tendinitis. Bilateral hip pain for one year. No known injury. TECHNIQUE: Routine multiplanar sequences are Right hip: Mild motion degradation. Also image degradation due to body habitus. No evidence of acute fracture, marrow edema or aggressive bone destruction. No evidence of femoral head osteonecrosis. Mild linear signal at the anterosuperior labrum labrum. This may be superficial to the labrum rather than within the labrum. No advanced DJD. No significant joint effusion. Gluteus minimus and medius tendon attachments are intact. Hamstring tendon intact. Iliopsoas tendon intact. Rectus femoris tendon attachment is intact. No abnormal soft tissue fluid collection is identified. Left hip: Mild motion degradation. There is also image degradation due to body habitus. No acute fracture, marrow edema or femoral head osteonecrosis. No aggressive bone destruction. No significant joint effusion. No advanced DJD. Mild linear signal along the anterosuperior labrum. This appears very similar to what was seen at the contralateral hip and may be along the surface of the labrum rather than within the labrum. Gluteus minimus and medius tendons are intact. Hamstring tendon attachment intact. Iliopsoas tendon intact. Rectus femoris tendon attachment intact. No evidence of acute soft tissue abnormality. Large rdyjt-zl-fvsy coronal survey sequence demonstrates no other acute findings within the [id number]. IMPRESSION: 1. Mild linear signal along the right and left anterosuperior labrum. Given that this may be superficial to the labrum and appears bilaterally symmetric, this most likely just represents some fluid within the joint recess, rather than right and left labral tear. 2. No other acute abnormality or internal derangement. Electronically signed by: Aden Castaneda MD (01/06/2020 2:11 PM) [id number]
== END | disposition home or self-care (01) ==
LOC: KCIC MRI 11:01
PROVIDERS: ATTEND Orthopaedic Surgery Sports Medicine
DX: M76.891 Other specified enthesopathies of right lower limb, excluding foot (principal); M76.892 Other specified enthesopathies of left lower limb, excluding foot
CPT/HCPCS: 73721

== ENCOUNTER → 2020-02-06 | Outpatient (CLI) | payer OTHER ==
[2018-01-05 20:59] VITALS: BP 136/69
[~2020-02-06] MED LIST changes: +ACET500T68 PO; +AMIT50TA PO; +ASPI-630 PO; +DILT120C55 PO; +ERGO2000 PO; +HYDR12.58 PO; +ISOS30TA4 PO; +LEVO5TAB29 PO; +LINZESS290 MCG PO; +LISI-338 PO; +LURA40TA PO; +MAGN400T5 PO; +MELO15TA23 PO; +NALT1TAB PO; +PROP10TA PO; +ROPI1TAB4 PO
[2020-02-06 09:22] LABS: BASO % 1 % (0-3); EOS # 0.2 x10^3/uL (0.0-0.7); EOS % 3 % (0-3); HEMATOCRIT 38.1 % (36.0-47.0); HEMOGLOBIN 12.9 g/dL (12.0-15.5); LYMPH # 2.6 x10^3/uL (1.0-4.8); LYMPH % 41 % (24-48); MEAN CORPUSCULAR HEMOGLOBIN 31 pg (25-35); MEAN CORPUSCULAR HGB CONC 34 g/dL (31-37); MEAN CORPUSCULAR VOLUME 92 fL (79-100); MONO # 0.5 x10^3/uL (0.0-1.1); MONO % 8 % (0-9); NEUT % 47 % (31-73); PLATELET COUNT 294 x10^3/uL (140-400); RED BLOOD COUNT 4.16 x10^6/uL (3.50-5.40); WHITE BLOOD COUNT 6.4 x10^3/uL (4.0-11.0)
[2020-02-06 09:32] LABS: PROTHROMBIN TIME PATIENT 13.5 SEC (11.7-14.0)
[2020-02-06 09:39] LABS: ALBUMIN 3.5 g/dL (3.4-5.0); CALCIUM 9.4 mg/dL (8.5-10.1); GFR 59.4; POTASSIUM 4.3 mmol/L (3.5-5.1)
--- NOTE | 2020-02-06 13:21 | EKG ---
[facility] [address] [place] [address] Test Date: 2020-02-06 Test Time: 12:53:34 Pat Name: MAYRA MACE Department: Room: Gender: F Telephone Clerks Supervisor: SHANTI : 1970 Requested By: ARLINE ALEXANDER Order Number: [id number] Reading MD: Mehul Walker Measurements Intervals [place] Rate: 73 P: 9 MD: 232 QRS: 46 QRSD: 64 T: 125 QT: 408 QTc: 453 Interpretive Statements SINUS RHYTHM PROLONGED MD INTERVAL ST & T ABNORMALITY, CONSIDER HIGH LATERAL ISCHEMIA OR LEFT VENTRICULAR STRAIN ABNORMAL ECG Electronically Signed On 02-06-2020 15:04:53 CDT by Mehul Walker
--- NOTE | 2020-02-06 14:39 | RAD ---
CHEST PA LATERAL History: Hypertension. Preoperative left knee surgery. Comparison: 02/20/2017 CT chest without contrast. Findings: Frontal and lateral views of the chest were obtained. The cardiomediastinal silhouette is normal. Pulmonary vasculature is normal. The lungs are clear. Left lateral basilar scarring is similar for correlation with the previous CT exam. Calcified granulomas involve the right lung base. No pleural effusion or pneumothorax is seen. There is no acute bone abnormality. IMPRESSION: No acute cardiopulmonary process. Electronically signed by: Tulio Ellis MD (02/06/2020 2:36 PM) [email or web address]
[2020-02-06 23:07] LABS: HEMOGLOBIN A1C 6.5 % (4.8-5.6)
== END | disposition home or self-care (01) ==
LOC: SURGPAT 13:15
PROVIDERS: ATTEND Orthopaedic Surgery
DX: Z01.818 Encounter for other preprocedural examination (principal); J84.10 Pulmonary fibrosis, unspecified; J98.4 Other disorders of lung; R94.31 Abnormal electrocardiogram [ECG] [EKG]; I10 Essential (primary) hypertension
CPT/HCPCS: 36415; 71046; 80048; 82040; 82306; 83036; 85025; 85610; 85651; 85730; 87641; 93005

== ENCOUNTER → 2020-04-27 | Outpatient (CLI) | payer OTHER ==
[2018-01-05 20:59] VITALS: BP 136/69
[~2020-04-27] MED LIST changes: -DICL100G18 TP; +DICL100G54 TP; +LEVO750T31 PO; +MAGN200T7 PO; +METF-658 PO; -METF500T11 PO
[2020-04-27 15:35] LABS: BASO # 0.1 x10^3/uL (0.0-0.2); BASO % 1 % (0-3); EOS # 0.1 x10^3/uL (0.0-0.7); EOS % 2 % (0-3); HEMATOCRIT 41.1 % (36.0-47.0); HEMOGLOBIN 13.9 g/dL (12.0-15.5); LYMPH # 2.1 x10^3/uL (1.0-4.8); LYMPH % 31 % (24-48); MEAN CORPUSCULAR HEMOGLOBIN 31 pg (25-35); MEAN CORPUSCULAR HGB CONC 34 g/dL (31-37); MEAN CORPUSCULAR VOLUME 92 fL (79-100); MONO # 0.5 x10^3/uL (0.0-1.1); MONO % 8 % (0-9); NEUT # 3.8 x10^3/uL (1.8-7.7); NEUT % 58 % (31-73); PLATELET COUNT 335 x10^3/uL (140-400); RED BLOOD COUNT 4.48 x10^6/uL (3.50-5.40); RED CELL DISTRIBUTION WIDTH 14.8 % (11.5-14.5); WHITE BLOOD COUNT 6.6 x10^3/uL (4.0-11.0)
[2020-04-27 15:37] LABS: BILIRUBIN,URINE NEGATIVE (NEG); CLARITY,URINE CLEAR; COLOR,URINE YELLOW; NITRITE,URINE NEGATIVE (NEG); PROTEIN,URINE NEGATIVE (NEG-TRACE); UROBILINOGEN,URINE 0.2 mg/dL (0.2 mg/dL)
[2020-04-27 15:45] LABS: PROTHROMBIN TIME PATIENT 13.4 SEC (11.7-14.0)
[2020-04-27 15:47] LABS: ALBUMIN 3.6 g/dL (3.4-5.0); C-REACTIVE PROTEIN 6.2 mg/L (0-3.3); CALCIUM 9.5 mg/dL (8.5-10.1); GFR 59.2; POTASSIUM 3.8 mmol/L (3.5-5.1)
[2020-04-27 15:59] LABS: BACTERIA,URINE MANY /HPF (0-FEW); RBC,URINE OCC /HPF (0-2); SQUAMOUS EPITHELIAL CELL,UR FEW /LPF
[2020-04-28 06:10] LABS: HEMOGLOBIN A1C 6.5 % (4.8-5.6)
== END | disposition home or self-care (01) ==
LOC: SURGPAT 14:24
PROVIDERS: ATTEND Orthopaedic Surgery
DX: Z01.818 Encounter for other preprocedural examination (principal); M17.12 Unilateral primary osteoarthritis, left knee
CPT/HCPCS: 36415; 80048; 81001; 82040; 82306; 83036; 85025; 85610; 85730; 86140; 87086; 87641; U0003-CS

== ENCOUNTER → 2020-05-11 | Outpatient (CLI) | payer OTHER ==
[2018-01-05 20:59] VITALS: BP 136/69
[~2020-05-11] MED LIST changes: +ASPI325T11 PO
[2020-05-11 12:50] LABS: BILIRUBIN,URINE NEGATIVE (NEG); CLARITY,URINE CLEAR; COLOR,URINE YELLOW; NITRITE,URINE NEGATIVE (NEG); PROTEIN,URINE NEGATIVE (NEG-TRACE); UROBILINOGEN,URINE 0.2 mg/dL (0.2 mg/dL)
[2020-05-11 13:04] LABS: SQUAMOUS EPITHELIAL CELL,UR FEW /LPF
[2020-05-11 13:05] LABS: AMORPHOUS SEDIMENT,UR PRESENT /HPF; BACTERIA,URINE 0 /HPF (0-FEW); RBC,URINE 0 /HPF (0-2)
== END | disposition home or self-care (01) ==
LOC: LAB 11:58
PROVIDERS: ATTEND Orthopaedic Surgery
DX: Z01.818 Encounter for other preprocedural examination (principal); Z11.59 Encounter for screening for other viral diseases
CPT/HCPCS: 36415; 81001; 87086; U0003

== ENCOUNTER → 2020-06-04 | Outpatient (CLI) | payer OTHER ==
[2020-05-18 19:30] VITALS: BP 156/95
--- NOTE | 2020-06-04 17:24 | RAD ---
EXAM: Left lower extremity venous Doppler sonogram. HISTORY: Pain and swelling. TECHNIQUE: Soto scale and color Doppler sonographic evaluation of the left lower extremity veins with spectral waveform analysis was performed. FINDINGS: There is normal color flow, normal compressibility and there are normal spectral waveforms in the common femoral, superficial femoral, popliteal, posterior tibial and greater saphenous veins. IMPRESSION: No Doppler evidence of lower extremity deep venous thrombosis. Electronically signed by: Kenisha Hernandez MD (06/04/2020 5:21 PM) [id number]
== END | disposition home or self-care (01) ==
LOC: US 16:43
PROVIDERS: ATTEND Orthopaedic Surgery
DX: M79.662 Pain in left lower leg (principal); Z47.1 Aftercare following joint replacement surgery; Z96.652 Presence of left artificial knee joint
CPT/HCPCS: 93971

== ENCOUNTER → 2020-10-18 | Outpatient (CLI) | payer OTHER ==
[2020-05-18 19:30] VITALS: BP 156/95
[~2020-10-18] MED LIST changes: -CETI10TA24 PO; +CETI10TA74 PO; +DEXL60CA2 PO; +GABA600T7 PO; +HYDR2TAB31 PO; +HYDR4TAB45 PO
[2020-10-18 15:15] LABS: BASO # 0.1 x10^3/uL (0.0-0.2); BASO % 1 % (0-3); EOS # 0.1 x10^3/uL (0.0-0.7); EOS % 2 % (0-3); HEMATOCRIT 41.3 % (36.0-47.0); HEMOGLOBIN 13.8 g/dL (12.0-15.5); LYMPH # 2.1 x10^3/uL (1.0-4.8); LYMPH % 32 % (24-48); MEAN CORPUSCULAR HEMOGLOBIN 30 pg (25-35); MEAN CORPUSCULAR HGB CONC 33 g/dL (31-37); MEAN CORPUSCULAR VOLUME 90 fL (79-100); MONO # 0.4 x10^3/uL (0.0-1.1); MONO % 6 % (0-9); NEUT # 3.9 x10^3/uL (1.8-7.7); NEUT % 59 % (31-73); PLATELET COUNT 323 x10^3/uL (140-400); RED BLOOD COUNT 4.57 x10^6/uL (3.50-5.40); RED CELL DISTRIBUTION WIDTH 15.4 % (11.5-14.5); WHITE BLOOD COUNT 6.6 x10^3/uL (4.0-11.0)
[2020-10-18 15:26] LABS: PROTHROMBIN TIME PATIENT 13.2 SEC (11.7-14.0)
[2020-10-18 15:42] LABS: ALBUMIN 3.7 g/dL (3.4-5.0); C-REACTIVE PROTEIN 7.2 mg/L (0-3.3); CREATININE 0.9 mg/dL (0.6-1.0); GFR 66.8; POTASSIUM 3.6 mmol/L (3.5-5.1)
[2020-10-18 23:08] LABS: HEMOGLOBIN A1C 6.6 % (4.8-5.6)
== END ==
LOC: SURGPAT 14:33
PROVIDERS: ATTEND Orthopaedic Surgery
DX: Z01.812 Encounter for preprocedural laboratory examination (principal); M22.12 Recurrent subluxation of patella, left knee; Z88.6 Allergy status to analgesic agent; Z88.5 Allergy status to narcotic agent; Z91.040 Latex allergy status; Z20.828 Contact with and (suspected) exposure to other viral communicable diseases
CPT/HCPCS: 80048; 82040; 82306; 83036; 85025; 85610; 85730; 86140; 87641; U0003

== ENCOUNTER → 2021-04-17 | Outpatient (CLI) | payer OTHER ==
[2020-10-24 11:00] VITALS: BP 119/58
[~2021-04-17] MED LIST changes: +ACET-1871 PO; +ATOR20TA58 PO; +BUPR150T21 PO; +CYCL5TAB PO; +DILT120C71 PO; +HYDR4TAB PO; -ISOS30TA4 PO; +ISOS30TA68 PO; -LISI-338 PO; +LISI-517 PO; +METF500T16 PO; +NAPR500T8 PO; +PLEC3TAB2 PO; +ROPI2TAB6 PO; +UBRO50TA PO
--- NOTE | 2021-04-17 15:30 | PDOC1 ---
INITIAL PAIN CONSULT DATE OF SERVICE: DOS: DATE: 04/17/21 TIME: 15:22 CHIEF COMPLAINT: Chief Complaint: Low back pain HISTORY OF PRESENT ILLNESS: 51-year-old female presents with history of pain in the low back for many years starting about 1999 [id number] patient reports not the result of any specific injury or accident that she had, but significant pain in the low back and worse over the past year to 2 years patient reports its increasing in the low back worse with standing and walking especially she cannot walk for more than 10 to 15 minutes where she has to sit down to rest with sitting and the pain is decreased fairly significantly she sits for more than 20 to 30 minutes then the pain begins to increase. Patient reports is in the low back bilaterally right essentially equal to left worse with positional changes and especially with walking standing. Patient has tried Celebrex which is not helpful also Naprosyn which does help but only mildly, patient taking hydromorphone as well with minimal decrease in pain for her back. Patient is doing physical therapy currently but was unable to tolerate the physical therapy completely and had to discontinue it earlier patient is also doing exercise which she does reports does not decrease the pain and has had epidural injections several years ago approximately 10 years ago which were not helpful as well. Patient did have MRI scan lumbar spine dated March 21, 2021 showing a degenerative changes degenerative disc disease with desiccation at L5-S1 with mild facet arthropathy no focal disc herniations throughout. Patient reports pain is constant sharp shooting across the low back and stabbing but without radiation to the lower extremities. Patient rates her disability rating 0-10 10 being the worst is a 9 with family responsibilities recreation social activity self-care and to life support activities. Patient reports no loss of motor function but some fatigability of the lower extremities with standing or walking even more than 10 minutes. PAST MEDICAL HISTORY: PMH: Hypertension, arthritis, neuropathy, shortness of breath, COPD, diabetes, irritable bowel syndrome, fatty liver disease, sleep apnea PREVIOUS SURGERIES: Past Surgical Hx: Total knee replacement x2 on the left, total abdominal hysterectomy, left shoulder surgery, aortic repair, cholecystectomy, tonsillectomy, carpal tunnel repair, cubital tunnel repair CURRENT MEDICATIONS: Current Meds: Active Scripts Medications Dose Route/Sig Max Daily Dose Days Date Category Hydromorphone Hcl 4 Mg Tablet 4 Mg PO DAILY 04/17/21 Reported Naproxen 500 Mg Tablet.dr 1 Tab PO BID 04/17/21 Reported Bupropion Xl (Bupropion Hcl) 150 Mg Tab.er.24h 150 Mg PO DAILY 04/17/21 Reported Ubrelvy (Ubrogepant) 50 Mg Tablet 50 Mg PO PRN 04/17/21 Reported Trulance (Plecanatide) 3 Mg Tablet 3 Mg PO DAILY 04/17/21 Reported Ropinirole Hcl 2 Mg Tab.er.24h 2 Mg PO DAILY 04/17/21 Reported Cartia Xt (Diltiazem Hcl) 120 Mg Cap.er.24h 2 Cap PO DAILY 30 04/17/21 Reported Acetaminophen Ext.release (Acetaminophen) 650 Mg Tablet.er 650 Mg PO PRN Q8HRS PRN 04/17/21 Reported Xyzal (Levocetirizine Dihydrochloride) 5 Mg Tablet 5 Mg PO BID 04/17/21 Reported Magnesium Oxide 400 Mg Tablet 1 Tab PO DAILY 04/17/21 Reported Aspirin 81 Mg Tab.chew 1 Tab PO DAILY 04/17/21 Reported Cyclobenzaprine Hcl 5 Mg Tablet 1 Tab PO TID 04/17/21 Reported Oseni 25-15 Mg Tablet (Alogliptin Walter/Pioglitzone) 1 Each Tablet 1 Tab PO DAILY 30 04/17/21 Reported Levothyroxine Sodium 50 Mcg Tablet 1 Tab PO DAILY 04/17/21 Reported Gabapentin 300 Mg Capsule 300 Mg PO TID 04/17/21 Reported Metformin Hcl 500 Mg Tablet 500 Mg PO DAILY 04/17/21 Reported Atorvastatin Calcium 20 Mg Tablet 1 Tab PO BID 04/17/21 Reported Isosorbide Mononitrate Er (Isosorbide Mononitrate) 30 Mg Tab.er.24h 15 Mg PO DAILY 02/08/20 Reported Amitriptyline Hcl 50 Mg Tablet 50 Mg PO QHS 02/08/20 Reported Vitamin D2 (Ergocalciferol (Vitamin D2)) 2,000 Unit Tablet 50,000 Unit PO WEEKLY 02/08/20 Reported Hydrochlorothiazide Tablet (Hydrochlorothiazide) 12.5 Mg Tablet 12.5 Mg PO DAILY 02/08/20 Reported Metoprolol Succinate ( Xl ) (Metoprolol Succinate) 200 Mg Tab.er.24h 100 Mg PO DAILY 03/20/16 Reported ALLERGIES; Allergies: Coded Allergies: Opioids - Morphine Analogues (Verified Allergy, Intermediate, Itching, 10/23/20) Opioids-Meperidine and Related (Verified Allergy, Intermediate, Itching, 10/23/20) Opioids-Methadone and Related (Verified Allergy, Intermediate, Itching, 10/23/20) latex (Verified Allergy, Intermediate, swelling, 10/23/20) morphine (Verified Allergy, Intermediate, 10/23/20) oxycodone HCl (Verified Allergy, Intermediate, vomiting, 10/23/20) codeine (Verified Adverse Reaction, Intermediate, Itching, 10/23/20) FAMILY HISTORY: Family Hx: COPD, hypertension, diabetes, arthritis SOCIAL HISTORY: Social Hx: Patient drinks alcohol only very rarely does not smoke not use any illegal illicit or recreational drugs is lives with her spouse with 3 children living at home lives locally in [facility]. REVIEW OF SYSTEMS: ROS: Positive for those items mentioned in history of present illness, all systems are reviewed, otherwise negative ,and are complete full and well-documented on patient's chart. PHYSICAL EXAM: VS: Blood pressure is 147/87 pulse 67 respirations 18 temperature 98.0 F height is 5 foot 8 inches weight is 299 pounds PE: PHYSICAL EXAMINATION: GENERAL: The patient is awake, alert, oriented, appropriate, very pleasant demeanor HEENT: Shows normocephalic, atraumatic. Extraocular movements are intact and symmetrical. Oral cavity: Mucous membranes moist and pink. Dentition is intact. NECK: Shows anterior throat supple without palpable lymphadenopathy noted. Swallow reflex symmetrical. CHEST: Shows normal on inspection. Breath sounds are clear bilaterally, distant but no rales rhonchi wheezes auscultated. HEART: Shows S1, S2 clear. No murmurs auscultated. ABDOMEN: Soft, nontender, nondistended, obese. No palpable organomegaly is noted. No rebound or guarding demonstrated. BACK: Shows spine grossly in the midline. Normal-appearing cervical lordotic curvature. There is slightly increased thoracic kyphosis, some minor flattening of the lumbar lordotic curvature. Lumbar paraspinous muscles show symmetrical on inspection, on palpation shows some moderate tenderness diffusely throughout the upper, middle and lower distribution of the paraspinous muscles bilaterally and also into the lower thoracic paraspinous musculature, firm and tender, but without specific trigger points, without radiation of pain. Patient has good rotational motion lumbar spine with significant tenderness with right and left lateral rotation greater than 10 degrees and significant tenderness with extension at greater than 10 degrees and axial loading of the lumbar spine. Forward flexion at 45 degrees is performed ability and with less pain reported. No tenderness over the spinous processes, sacrum or sacroiliac regions. EXTREMITIES: Lower extremities show deep tendon reflexes 1+ in the patellar and tendo calcaneus tendons. Motor exam is 5 on a scale of 5 with right dorsiflexion, extension, quadriceps and hamstring flexion and 5/5 on the left. Peripheral pulses are 1+ posterior tibial. No peripheral edema is noted bilaterally. Lower extremities are warm and dry to touch, equal in color and appearance. Straight leg raise noted to be negative bilaterally. SKIN: Shows warm and dry, good turgor. No edema. No sores, rashes or bruising throughout. IMPRESSION: Impression: 51-year-old female with long history low back pain consistent with facet mediated pain bilaterally. MRI scan lumbar spine as noted Obesity Arthritis Hypertension Diabetes COPD Plan: Options were discussed with the patient patient spouse who accompanied her visit today including conservative medical management continued physical therapies and interventional techniques. Patient would like to pursue interventional techniques. We discussed bilateral facet joint medial branch blocks at the L4-5 and L5-S1 levels bilaterally, using anatomical models to describe the procedure. Patient would like to proceed. Patient will wait for preauthorization with her insurance provider once obtained we will plan on bilateral L4-5 and L5-S1 medial branch facet joint injections with fluoroscopic guidance. In the meantime patient will give a Medrol Dosepak was given instructions well side effects beware with the medication will follow up as scheduled. MAYO ASHTON MD April 17, 2021 15:30
== END | disposition home or self-care (01) ==
LOC: PNCL 14:11
PROVIDERS: ATTEND Anesthesiology
DX: M54.5 Low back pain (principal); I10 Essential (primary) hypertension; M19.90 Unspecified osteoarthritis, unspecified site; J44.9 Chronic obstructive pulmonary disease, unspecified; E11.42 Type 2 diabetes mellitus with diabetic polyneuropathy; G47.30 Sleep apnea, unspecified; K58.9 Irritable bowel syndrome, unspecified; E66.9 Obesity, unspecified; I25.10 Atherosclerotic heart disease of native coronary artery without angina pectoris; E78.00 Pure hypercholesterolemia, unspecified; E03.9 Hypothyroidism, unspecified; F41.9 Anxiety disorder, unspecified; F32.9 Major depressive disorder, single episode, unspecified; Z90.710 Acquired absence of both cervix and uterus; Z90.49 Acquired absence of other specified parts of digestive tract; Z98.890 Other specified postprocedural states; Z79.899 Other long term (current) drug therapy; Z79.82 Long term (current) use of aspirin; Z79.84 Long term (current) use of oral hypoglycemic drugs; Z91.040 Latex allergy status; Z88.5 Allergy status to narcotic agent; Z88.6 Allergy status to analgesic agent; Z88.8 Allergy status to other drugs, medicaments and biological substances; Z82.49 Family history of ischemic heart disease and other diseases of the circulatory system; Z83.3 Family history of diabetes mellitus
CPT/HCPCS: G0463

== ENCOUNTER → 2021-05-08 | Outpatient (CLI) | payer OTHER ==
[2020-10-24 11:00] VITALS: BP 119/58
[~2021-05-08] MED LIST changes: +BUPIVACAINE MPF 0.25% 10 ML VIAL. ONE; +IOHEXOL 180 MG/ML 10 ML VIAL. ONE; +methylPREDNISolone ACETATE 40 MG/ML VIAL. ONE; +methylPREDNISolone ACETATE 80 MG/ML VIAL. ONE
--- NOTE | 2021-05-08 12:54 | PDOC4 ---
PROCEDURE Procedure Patient was consented for bilateral lumbar facet medial branch blocks. Risks were discussed including but not limited to: Bleeding, infection, possibility of epidural hematoma and subsequent neurological compromise, dural puncture, headaches, spinal cord and/or nerve damage, side effects of steroid medication, and poor results regarding pain control. Patient understands and wished to proceed. Under sterile prep and drape using C-arm fluoroscopic guidance AP and lateral and oblique views, bilateral L4-5 and L5-S1 facet joint injections were performed, using quinke needles with stylette's x4,, medications injected: 120 mg Depo-Medrol +4 cc 0.25% bupivacaine +2 cc contrast. Condition at discharge stable patient tolerated the procedure well and no complications. MAYO ASHTON MD May 08, 2021 12:54
--- NOTE | 2021-05-08 12:54 | PDOC ---
Progress Note - Pain Clinic Date of Service: DOS: DATE: 05/08/21 TIME: 12:46 Diagnosis: Dx: Lumbar and lumbosacral spondylosis with lumbar degenerative disc disease History or Present Illness: HPI: 51-year-old female returns for follow-up status post initial valuation prea uthorization for bilateral facet joint injections. Patient is obtained that now would like to proceed still reports pain base of the lumbar spine bilaterally not radiating to the lower extremities somewhat worse on the right than the left worse with standing walking changing positions as well as prolonged sitting better at night but does wake her from sleep about once every 6-7 hours patient reports that the pain is stabbing aching sharp and dull shooting across the low back again worse on the right than the left with activity on and off at times radiating constant can be severe and unbearable as well. Patient reports it is a 9-10 on scale 10 is worse over the past week 8-9 on average and affords least is a 4 today patient reports no new motor or sensory deficits no new bowel or bladder incontinence or other complaints. Physical Exam: VS: Blood pressure is 141/84 pulse 76 respirations 18 temperature 98.1 F weight is 312 pounds PE: PHYSICAL EXAMINATION: GENERAL: The patient is awake, alert, oriented, appropriate, very pleasant demeanor HEENT: Shows normocephalic, atraumatic. Extraocular movements are intact and symmetrical. Oral cavity: Mucous membranes moist and pink. NECK: Shows anterior throat supple without palpable lymphadenopathy noted. Swallow reflex symmetrical. CHEST: Shows normal on inspection. Breath sounds are clear bilaterally. HEART: Shows S1, S2 clear. No murmurs auscultated. ABDOMEN: Soft, nontender, nondistended, obese. No palpable organomegaly is noted. No rebound or guarding demonstrated. BACK: Shows spine grossly in the midline. Normal-appearing cervical lordotic curvature. There is slightly increased thoracic kyphosis, some minor flattening of the lumbar lordotic curvature. Lumbar paraspinous muscles show symmetrical on inspection, on palpation shows some moderate tenderness diffusely throughout the upper, middle and lower distribution of the paraspinous muscles, but without specific trigger points, without radiation of pain. The patient has good rotational motion of the lumbar spine, both laterally as well as extension and flexion with significant pain with extension greater than 10 degrees and axial loading of the lumbar spine better with forward flexion 45 degrees right and left lateral rotation past 10 degrees shows significant tenderness more to the right than the left but again without radiation to the lower extremities. EXTREMITIES: Lower extremities show deep tendon reflexes 1+ in the patellar and tendo calcaneus tendons. Motor exam is 5 on a scale of 5 with right dorsiflexion, extension, quadriceps and hamstring flexion and 5/5 on the left. Peripheral pulses are 1+ posterior tibial. No peripheral edema is noted bilaterally. Lower extremities are warm and dry to touch, equal in color and appearance. SKIN: Shows warm and dry, good turgor. No edema. No sores, rashes or bruising throughout. Procedure: Procedure: Options were discussed with the patient. Patient chart reviewed as her current medication regimen updated current review of systems updated today as well. We will proceed with bilateral L4-5 and L5-S1 facet medial branch blocks today with fluoroscopic guidance. Risks were discussed including but not limited to: Bleeding, infection, possibility of epidural hematoma and subsequent neurological compromise, dural puncture, headaches, spinal cord and/or nerve damage, side effects of steroid medication, and poor results regarding pain control. Patient understands and wished to proceed. Patient will return to the clinic in approximate 2 weeks for follow-up, was counseled as return appointment, activity level, and side effects to be aware of. Medication Injected: Med Injected: Under sterile prep and drape using C-arm fluoroscopic guidance AP and lateral and oblique views, bilateral L4-5 and L5-S1 facet joint injections were performed, using quinke needles with stylette's x4,, medications injected: 120 mg Depo-Medrol +4 cc 0.25% bupivacaine +2 cc contrast. Condition at discharge stable patient tolerated the procedure well and no complications. Condition at Discharge: Condition at Discharge: Condition at discharge stable, patient noted the procedure well and had no c omplications. MAYO ASHTON MD May 08, 2021 12:53
== END | disposition home or self-care (01) ==
LOC: PNCL 11:09
PROVIDERS: ATTEND Anesthesiology
DX: M47.817 Spondylosis without myelopathy or radiculopathy, lumbosacral region (principal); M51.37 Other intervertebral disc degeneration, lumbosacral region; I10 Essential (primary) hypertension; G62.9 Polyneuropathy, unspecified; E78.00 Pure hypercholesterolemia, unspecified; J45.909 Unspecified asthma, uncomplicated; G47.30 Sleep apnea, unspecified; K21.9 Gastro-esophageal reflux disease without esophagitis; E66.9 Obesity, unspecified; M79.7 Fibromyalgia; M19.90 Unspecified osteoarthritis, unspecified site; E03.9 Hypothyroidism, unspecified; F31.9 Bipolar disorder, unspecified; E11.42 Type 2 diabetes mellitus with diabetic polyneuropathy; F41.9 Anxiety disorder, unspecified; E11.65 Type 2 diabetes mellitus with hyperglycemia; E11.40 Type 2 diabetes mellitus with diabetic neuropathy, unspecified; Z88.5 Allergy status to narcotic agent; Z82.5 Family history of asthma and other chronic lower respiratory diseases; Z88.8 Allergy status to other drugs, medicaments and biological substances; Z91.040 Latex allergy status; Z98.890 Other specified postprocedural states; Z90.49 Acquired absence of other specified parts of digestive tract; Z90.710 Acquired absence of both cervix and uterus; Z90.721 Acquired absence of ovaries, unilateral; Z80.3 Family history of malignant neoplasm of breast; Z87.442 Personal history of urinary calculi; Z96.652 Presence of left artificial knee joint; Z82.49 Family history of ischemic heart disease and other diseases of the circulatory system
CPT/HCPCS: 64493; 64494; J1030; J1040; J3490; Q9965

== ENCOUNTER → 2021-05-22 | Outpatient (CLI) | payer OTHER ==
[2020-10-24 11:00] VITALS: BP 119/58
[~2021-05-22] MED LIST changes: -BUPIVACAINE MPF 0.25% 10 ML VIAL. ONE; -IOHEXOL 180 MG/ML 10 ML VIAL. ONE; -methylPREDNISolone ACETATE 40 MG/ML VIAL. ONE; -methylPREDNISolone ACETATE 80 MG/ML VIAL. ONE
--- NOTE | 2021-05-22 11:31 | PDOC ---
Progress Note - Pain Clinic Date of Service: DOS: DATE: 05/22/21 TIME: 11:27 Diagnosis: Dx: Lumbar and lumbosacral spondylosis with lumbar degenerative disc disease History or Present Illness: HPI: 51-year-old female returns for follow-up status post bilateral L4-5 and L5-S1 facet joint medial branch blocks. Patient reports better but only for a few days after the injections by about 80 to 85% however was short-lived for only a few days following the injection the pain returned fairly significantly in the low back bilaterally right equal to left with standing especially also with bending and stooping and rotation of the lumbar spine patient reports a 10 on scale 10 is worse over this past week 8 on average 8 its least as an 8 today patient comes aching and sharp stabbing burning constant in the low back itself patient reports especially when she is standing still when she is at the kitchen counter or at the sink doing some dishes she notices the pain significant had to sit down to try and get it to go away patient reports it wakes her from sleep about every 3-4 hours since the pain returned. Patient reports no new motor or sensory deficits no new bowel or bladder incontinence no complaints. Physical Exam: VS: Blood pressure is 140/76 pulse 70 respirations 16 temperature 90.3 F weight is 295 pounds PE: PHYSICAL EXAMINATION: GENERAL: The patient is awake, alert, oriented, appropriate, very pleasant demeanor HEENT: Shows normocephalic, atraumatic. Extraocular movements are intact and symmetrical. NECK: Shows anterior throat supple without palpable lymphadenopathy noted. Swallow reflex symmetrical. CHEST: Shows normal on inspection. Breath sounds are clear bilaterally. HEART: Shows S1, S2 clear. No murmurs auscultated. ABDOMEN: Soft, nontender, nondistended, obese. BACK: Shows spine grossly in the midline. Normal-appearing cervical lordotic c urvature. There is slightly increased thoracic kyphosis, some minor flattening of the lumbar lordotic curvature. Lumbar paraspinous muscles show symmetrical on inspection, on palpation shows some moderate tenderness diffusely throughout the upper, middle and lower distribution of the paraspinous muscles, but without specific trigger points, without radiation of pain. The patient has good rotational motion of the lumbar spine, both laterally as well as extension and flexion with significant tenderness with extension of the lumbar spine and axial loading of the low back bilaterally forward flexion is performed at 45 degrees without significant pain right and left lateral rotation is more tender to the right than the left and present bilaterally with tenderness with rotation. No tenderness over the spinous processes, sacrum or sacroiliac regions. EXTREMITIES: Lower extremities show deep tendon reflexes 1+ in the patellar and tendo calcaneus tendons. Motor exam is 5 on a scale of 5 with right dorsiflexion, extension, quadriceps and hamstring flexion and 5/5 on the left. Peripheral pulses are 1+ posterior tibial. No peripheral edema is noted bilaterally. Lower extremities are warm and dry. SKIN: Shows warm and dry, good turgor. No edema. No sores, rashes or bruising throughout. Procedure: Procedure: Options were discussed with the patient. Patient's old chart was reviewed as her current medication regimen updated current review of systems updated today as well. We will preauthorize patient for second lumbar facet medial branch blocks at the L4-5 and L5-S1 levels bilaterally with fluoroscopic guidance. Meantime patient will continue with stretching strength exercise as well as oral analgesics and anti-inflammatories as currently. Medication Injected: Med Injected: None Condition at Discharge: Condition at Discharge: Condition at discharge is stable. MAYO ASHTON MD May 22, 2021 11:31
== END | disposition home or self-care (01) ==
LOC: PNCL 10:42
PROVIDERS: ATTEND Anesthesiology
DX: M47.817 Spondylosis without myelopathy or radiculopathy, lumbosacral region (principal); M51.36 Other intervertebral disc degeneration, lumbar region; I25.10 Atherosclerotic heart disease of native coronary artery without angina pectoris; I10 Essential (primary) hypertension; E78.00 Pure hypercholesterolemia, unspecified; E66.9 Obesity, unspecified; K21.9 Gastro-esophageal reflux disease without esophagitis; M19.90 Unspecified osteoarthritis, unspecified site; E03.9 Hypothyroidism, unspecified; E11.9 Type 2 diabetes mellitus without complications; F41.9 Anxiety disorder, unspecified; F32.9 Major depressive disorder, single episode, unspecified; Z90.49 Acquired absence of other specified parts of digestive tract; Z90.710 Acquired absence of both cervix and uterus; Z98.890 Other specified postprocedural states; Z79.899 Other long term (current) drug therapy; Z79.82 Long term (current) use of aspirin; Z79.84 Long term (current) use of oral hypoglycemic drugs; Z82.49 Family history of ischemic heart disease and other diseases of the circulatory system; Z91.040 Latex allergy status; Z88.6 Allergy status to analgesic agent; Z88.8 Allergy status to other drugs, medicaments and biological substances
CPT/HCPCS: 99212; G0463

== ENCOUNTER → 2021-06-07 | Outpatient (CLI) | payer OTHER ==
[2020-10-24 11:00] VITALS: BP 119/58
[~2021-06-07] MED LIST changes: +BUPIVACAINE MPF 0.25% 10 ML VIAL. ONE; +IOHEXOL 180 MG/ML 10 ML VIAL. ONE; +methylPREDNISolone ACETATE 40 MG/ML VIAL. ONE; +methylPREDNISolone ACETATE 80 MG/ML VIAL. ONE
--- NOTE | 2021-06-07 11:20 | PDOC4 ---
Procedure Note: Procedure Note: Patient was consented for bilateral lumbar facet joint medial branch blocks. Risks were discussed including but not limited to: Bleeding, infection, possibility of epidural hematoma and subsequent neurological compromise, dural puncture, headaches, spinal cord and/or nerve damage, side effects of steroid medication, and poor results regarding pain control. Patient understands and wished to proceed. Under sterile prep and drape using C-arm fluoroscopic guidance AP and lateral and oblique views, bilateral L4-5 and L5-S1 facet joint MB's injections were performed, using quinke needles with stylette's x4,, medications injected: 120 mg Depo-Medrol +4 cc 0.25% bupivacaine +2 cc contrast. Condition at discharge stable patient tolerated the procedure well and no complications. MAYO ASHTON MD Jun 07, 2021 11:20
--- NOTE | 2021-06-07 11:20 | PDOC ---
Progress Note - Pain Clinic Date of Service: DOS: DATE: 06/07/21 TIME: 11:16 Diagnosis: Dx: Lumbar and lumbosacral spondylosis Lumbar degenerative disc disease History or Present Illness: HPI: 51-year-old female returns for follow-up status post bilateral lumbar facet inje ctions L4-5 and L5-S1 on May 08. Patient reports she did well for about 2 to 3 days following the injection but 85% improvement with the pain returned very quickly in the low back bilaterally right essentially equal to left but slightly worse on the right side with walking patient reports pain is a 10 auscultate is worse over the past week 7 on average 5 its least is a 7 today. Patient ports a stabbing sharp can be severe and unbearable with standing walking prolonged sitting. Patient reports wakes her from sleep about once every 4-5 hours patient reports no new motor or sensory deficits no bowel or bladder incontinence but the pain is increasing and is changed to more of a sharper pain in the right side compared to the left. Physical Exam: VS: Blood pressure is 134/78 pulse 70 respirations 18 temperature 90.2 F height is 5 feet 8 inches weight is 302 pounds PE: PHYSICAL EXAMINATION: GENERAL: The patient is awake, alert, oriented, appropriate, very pleasant in demeanor HEENT: Shows normocephalic, atraumatic. Extraocular movements are intact and symmetrical. NECK: Shows anterior throat supple without palpable lymphadenopathy noted. Swallow reflex symmetrical. CHEST: Shows normal on inspection. Breath sounds are clear bilaterally. HEART: Shows S1, S2 clear. No murmurs auscultated. ABDOMEN: Soft, nontender, nondistended, obese. BACK: Shows spine grossly in the midline. Normal-appearing cervical lordotic curvature. There is increased thoracic kyphosis, some flattening of the lumbar lordotic curvature. Lumbar paraspinous muscles show symmetrical on inspection, on palpation shows some moderate tenderness diffusely throughout the upper, middle and lower distribution of the paraspinous muscles bilaterally and also into the lower thoracic paraspinous musculature, firm and tender, but without specific trigger points, without radiation of pain. The patient has good rotational motion of the lumbar spine, both laterally as well as extension and flexion with moderate tenderness with right and left lateral rotation past 10 degrees as well as significant tenderness with extension greater than 10 degrees and axial loading decreased with forward flexion 45 degrees. No tenderness over the spinous processes, sacrum or sacroiliac regions. EXTREMITIES: Lower extremities show deep tendon reflexes 1+ in the patellar and tendo calcaneus tendons. Motor exam is 5 on a scale of 5 with right dorsiflexion, extension, quadriceps and hamstring flexion and 5/5 on the left. Peripheral pulses are 1+ posterior tibial. No peripheral edema is noted bilaterally. Lower extremities are warm and dry. SKIN: Shows warm and dry, good turgor. No edema. No sores, rashes or bruising throughout. Procedure: Procedure: Options were discussed with the patient. Patient's old chart reviews her current medication regimen updated current review of systems updated today as well. We will proceed with bilateral L4-5 and L5-S1 medial branch facet joint blocks today with fluoroscopic guidance. Risks were discussed including but not limited to: Bleeding, infection, possibility of epidural hematoma and subsequent neurological compromise, dural puncture, headaches, spinal cord and/or nerve damage, side effects of steroid medication, and poor results regarding pain control. Patient understands and wished to proceed. Patient will return to the clinic in approximate 2 weeks for follow-up, was counseled as return appointment activity level and side effects to be aware of. Medication Injected: Med Injected: Under sterile prep and drape using C-arm fluoroscopic guidance AP and lateral and oblique views, bilateral L4-5 and L5-S1 facet joint MB's injections were performed, using quinke needles with stylette's x4,, medications injected: 120 mg Depo-Medrol +4 cc 0.25% bupivacaine +2 cc contrast. Condition at discharge stable patient tolerated the procedure well and no complications. Condition at Discharge: Condition at Discharge: Condition at discharge stable, patient already procedure well and had no complications. MAYO ASHTON MD Jun 07, 2021 11:20
== END | disposition home or self-care (01) ==
LOC: PNCL 10:14
PROVIDERS: ATTEND Anesthesiology
DX: M51.36 Other intervertebral disc degeneration, lumbar region (principal); M47.817 Spondylosis without myelopathy or radiculopathy, lumbosacral region; I25.10 Atherosclerotic heart disease of native coronary artery without angina pectoris; I10 Essential (primary) hypertension; E78.00 Pure hypercholesterolemia, unspecified; E03.9 Hypothyroidism, unspecified; E11.9 Type 2 diabetes mellitus without complications; F32.9 Major depressive disorder, single episode, unspecified; F41.9 Anxiety disorder, unspecified; G47.30 Sleep apnea, unspecified; E66.9 Obesity, unspecified; M19.90 Unspecified osteoarthritis, unspecified site; J45.909 Unspecified asthma, uncomplicated; Z90.710 Acquired absence of both cervix and uterus; Z90.49 Acquired absence of other specified parts of digestive tract; Z98.890 Other specified postprocedural states; Z79.899 Other long term (current) drug therapy; Z79.82 Long term (current) use of aspirin; Z79.84 Long term (current) use of oral hypoglycemic drugs; Z82.49 Family history of ischemic heart disease and other diseases of the circulatory system; Z91.040 Latex allergy status; Z88.6 Allergy status to analgesic agent; Z88.8 Allergy status to other drugs, medicaments and biological substances
CPT/HCPCS: 64493; 64494; J1030; J1040; J3490; Q9965

== ENCOUNTER → 2021-08-23 | Outpatient (CLI) | payer OTHER ==
[2020-10-24 11:00] VITALS: BP 119/58
[~2021-08-23] MED LIST changes: -BUPIVACAINE MPF 0.25% 10 ML VIAL. ONE; -IOHEXOL 180 MG/ML 10 ML VIAL. ONE; -methylPREDNISolone ACETATE 40 MG/ML VIAL. ONE; -methylPREDNISolone ACETATE 80 MG/ML VIAL. ONE
--- NOTE | 2021-08-26 08:56 | RAD ---
Chest radiograph 08/23/2021 5:51 PM INDICATION: Bronchopneumonia COMPARISON: 02/06/2020 TECHNIQUE: Frontal and lateral views of the chest are provided. FINDINGS: The cardiomediastinal silhouette is within normal limits. There are no pleural effusions. There is no pulmonary vascular congestion. There is no pneumothorax. The lungs are clear. No significant osseous abnormality is identified. IMPRESSION: No acute cardiopulmonary process. Electronically signed by: Lesvia Zepeda MD (08/26/2021 8:53 AM) [id number]
== END ==
LOC: RAD 16:58
PROVIDERS: ATTEND Physician Assistant
DX: J18.0 Bronchopneumonia, unspecified organism (principal)
CPT/HCPCS: 71046

== ENCOUNTER → 2021-10-31 | Outpatient (CLI) | payer OTHER ==
[2020-10-24 11:00] VITALS: BP 119/58
[~2021-10-31] MED LIST changes: -BENA40TA3 PO; +BENA40TA74 PO; +CYCL10TA19 PO; -CYCL10TA2 PO; -LISI-517 PO; +LISI5TAB15 PO; +MAGN400T48 PO; -MAGN400T5 PO
--- NOTE | 2021-10-31 15:49 | RAD ---
AP and Lateral Views of the Chest 10/31/2021 2:48 PM Indication: Reason: CHRONIC COUGH Comparison: Chest radiograph August 23, 2021 Findings: Linear opacities are seen in the right midlung left base likely combination of discoid atel ectasis or scarring. No pneumothorax or pleural effusion is seen. Heart size is normal. No acute osse ous changes are identified. IMPRESSION:. Linear atelectasis or scarring in the right midlung and left lower lobe. Appearance is s imilar to comparison study. Electronically signed by: Calos Bahena MD (10/31/2021 3:47 PM) [id number]
== END ==
LOC: RAD 14:37
PROVIDERS: ATTEND Family Medicine
DX: R91.8 Other nonspecific abnormal finding of lung field (principal); R05.3 Chronic cough
CPT/HCPCS: 71046